=== PATIENT | female | born 1940 | race American Indian/Alaskan Native ===

== ENCOUNTER 2022-02-19 09:06 | Inpatient (IN) | payer MEDICARE ==
[2022-02-19] MEDS ORDERED: ONDANSETRON 4 MG/2 ML INJ IV ONE (10:05)
[2022-02-19] MEDS ORDERED: MORPHINE 2 MG/1 ML INJ IV ONE ×2 (10:05→11:55)
--- NOTE | 2022-02-19 10:31 | Emergency Department Report ---
ED Lower Extremity HPI - General Chief Complaint: Extremity Injury, Lower Stated Complaint: FALL/LEFT HIP PAIN Time Seen by Provider: 02/19/22 09:59 Source: patient, EMS Mode of arrival: Stretcher Limitations: Physical Limitation - History of Present Illness Initial Comments: This is a 81-year-old female nontoxic, well nourished in appearance, presents to the ED with c/o of left hip pain 1 day. Patient stated that last night she was getting up from her couch and had a mechanical trip and fell to the left hip area. Patient denies any other injuries or trauma. Denies any neck or back pain. Denies any other complaints or symptoms. Denies any LOC. Denies denies any head injuries or trauma. Patient denies any numbness, tingling, fever, chills, nausea, vomiting, chest pain, shortness of breath, headache, stiff neck. Patient denies any joint swelling or joint redness. Patient states has decreased range of motion and gait due to pain. Patient stated allergies to codeine but stated has taken Morphin in the past without any allergies. MD Complaint: hip injury -: days(s) (1) Injury: Hip: Left Place: home Severity: mild Severity scale (0 -10): 8 Improves With: immobilization Worsens With: weight bearing, movement, palpation Context: fall Associated Symptoms: unable to bear weight. denies: snap/pop sensation, swelling, numbness, tingling - Related Data Allergies Allergy/AdvReac Type Severity Reaction Status Date / Time codeine Allergy Unknown Verified 02/19/22 09:26 ED Review of Systems ROS: Stated complaint: FALL/LEFT HIP PAIN Other details as noted in HPI Comment: All other systems reviewed and negative Constitutional: denies: chills, fever Eyes: denies: eye pain, eye discharge, vision change ENT: denies: ear pain, throat pain Respiratory: denies: cough, shortness of breath, wheezing Cardiovascular: denies: chest pain, palpitations Endocrine: no symptoms reported Gastrointestinal: denies: abdominal pain, nausea, diarrhea Genitourinary: denies: urgency, dysuria, discharge Musculoskeletal: denies: back pain, joint swelling, arthralgia Skin: denies: rash, lesions Neurological: denies: headache, weakness, paresthesias Psychiatric: denies: anxiety, depression Hematological/Lymphatic: denies: easy bleeding, easy bruising ED Physical Exam - General General appearance: alert, in no apparent distress - Head Head exam: Present: atraumatic, normocephalic - Eye Eye exam: Present: normal appearance, PERRL, EOMI Pupils: Present: normal accommodation - ENT ENT exam: Present: normal exam - Neck Neck exam: Present: normal inspection, full ROM. Absent: tenderness, meningismus, lymphadenopathy - Respiratory Respiratory exam: Present: normal lung sounds bilaterally. Absent: respiratory distress, wheezes, rales, rhonchi, stridor, chest wall tenderness, accessory muscle use, decreased breath sounds, prolonged expiratory - Cardiovascular Cardiovascular Exam: Present: regular rate, normal rhythm, normal heart sounds. Absent: bradycardia, tachycardia, irregular rhythm, systolic murmur, diastolic murmur, rubs, gallop - GI/Abdominal GI/Abdominal exam: Present: soft, normal bowel sounds. Absent: distended, tenderness, guarding, rebound, rigid, diminished bowel sounds - Extremities Exam Extremities exam: Present: tenderness, normal capillary refill. Absent: pedal edema, joint swelling, calf tenderness - Expanded Lower Extremity Exam Left Hip exam: Present: full ROM (bilateral exam: with pain), tenderness (left hip only), external rotation (bilateral exam), internal rotation (bilateral exam), pelvic stability (bilateral exam). Absent: swelling (bilateral exam), abrasion (bilateral exam), laceration (bilateral exam), ecchymosis (bilateral exam), deformity (bilateral exam), crepidus (bilateral exam), dislocation (bilateral exam), erythema (bilateral exam), shortening (bilateral exam) Upper Leg exam: Present: normal inspection (bilateral exam), full ROM (bilateral exam). Absent: tenderness (bilateral exam), swelling (bilateral exam) Knee exam: Present: normal inspection (bilateral exam), full ROM (bilateral exam). Absent: tenderness (bilateral exam), swelling (bilateral exam) Lower Leg exam: Present: normal inspection (bilateral exam), full ROM (bilateral exam). Absent: tenderness, swelling Ankle exam: Present: normal inspection (bilateral exam), full ROM (bilateral exam). Absent: tenderness (bilateral exam), swelling (bilateral exam) Foot/Toe exam: Present: normal inspection (bilateral exam), full ROM (bilateral exam). Absent: tenderness (bilateral exam), swelling (bilateral exam) Neuro vascular tendon exam: Present: no vascular compromise (bilateral exam) Gait: Positive: unable to bear weight (left hip) - Back Exam Back exam: Present: normal inspection, full ROM. Absent: tenderness, CVA tenderness (R), CVA tenderness (L), muscle spasm, paraspinal tenderness, vertebral tenderness, rash noted - Neurological Exam Neurological exam: Present: alert, oriented X3 - Psychiatric Psychiatric exam: Present: normal affect, normal mood - Skin Skin exam: Present: warm, dry, intact, normal color. Absent: rash ED Course Vital Signs 02/19/22 02/19/22 02/19/22 09:22 10:12 10:15 Temperature 98.4 F Pulse Rate 73 Respiratory 18 Rate Blood Pressure 216/71 Blood Pressure 227/94 [Left] O2 Sat by Pulse 97 99 100 Oximetry 02/19/22 02/19/22 02/19/22 10:31 10:45 11:01 Temperature Pulse Rate Respiratory Rate Blood Pressure 209/78 209/78 227/77 Blood Pressure [Left] O2 Sat by Pulse 99 99 98 Oximetry 02/19/22 02/19/22 02/19/22 11:15 11:31 11:45 Temperature Pulse Rate Respiratory Rate Blood Pressure 224/71 172/61 172/61 Blood Pressure [Left] O2 Sat by Pulse 99 99 98 Oximetry 02/19/22 02/19/22 02/19/22 12:01 12:15 12:31 Temperature Pulse Rate Respiratory Rate Blood Pressure 166/55 191/70 210/84 Blood Pressure [Left] O2 Sat by Pulse 97 99 99 Oximetry 02/19/22 02/19/22 02/19/22 13:28 13:38 13:47 Temperature Pulse Rate Respiratory Rate Blood Pressure 269/169 187/76 189/82 Blood Pressure [Left] O2 Sat by Pulse Oximetry 02/19/22 02/19/22 14:08 14:27 Temperature Pulse Rate Respiratory Rate Blood Pressure 191/90 192/89 Blood Pressure [Left] O2 Sat by Pulse Oximetry - Reevaluation(s) Reevaluation #1: 02/19/22 10:40 Patient is speaking in full sentences with no signs of distress noted. - Consultations Consultation #1: 02/19/22 14:46 Patient has been consulted with Dr. Marc about patient history, physical exam, and labs/imaging results and agrees to ED plan of care with consult to orthopedic and admission. Consultation #2: 02/19/22 14:[address] Landis office and given patient information and was instructed that Dr. Landis will come and visit patient after office clinic. Consultation #3: 02/19/22 17:16 Patient has been consulted with Dr. Landis about patient history, physical exam, and labs/imaging results and agrees for admission for surgery. 02/19/22 17:22 Patient is a [facility] Patient. I will contact [facility] for approval for admissions. 02/19/22 17:36 Patient has been consulted with Dr. Dixon ([facility]) about patient history, physical exam, and labs/imaging studies and patient to be transferred to [facility] for further evaluation and appropriate treatment. 02/19/22 18:[address] Lerma ([facility] ED Lower Extremity MDM - Lab Data Result diagrams: 02/19/22 10:30 02/19/22 10:30 - Radiology Data [facility] [address] [place] [address] Cat Scan Report Signed Patient: DONNY HERNANDEZ MR#: [id number] [birth year] : 1940 Acct:[id number] Age/Sex: 81 / F ADM Date: 02/19/22 Loc: ED Attending Dr: Ordering Physician: KIM HANSEN NP Date of Service: 02/19/22 Procedure(s): CT lower extremity LT wo con Accession Number(s): [id number] cc: KIM HANSEN NP CT LEFT HIP WITHOUT CONTRAST INDICATION / CLINICAL INFORMATION: fall with pain. TECHNIQUE: All CT scans at this location are performed using CT dose reduction for ALARA by means of automated exposure control. COMPARISON: None available. FINDINGS: HIP JOINT: Mild DJD of the left hip BONES: There is an acute basicervical fracture with mild impaction and moderate angulation. No osseous lesion. SACROILIAC JOINT(S): No significant abnormality. MUSCLES / TENDONS: No significant abnormality. SOFT TISSUES: No significant abnormality. LOWER LUMBAR SPINE: Scattered degenerative disc disease. SOFT TISSUE WITHIN PELVIS: No acute findings. ADDITIONAL FINDINGS: None. IMPRESSION: 1. Acute basicervical fracture of the left proximal femur with mild impaction and moderate angulation. Signer Name: Rao Cabrales DO Signed: 02/19/2022 1:54 PM Workstation Name: [id number] Transcribed By: NS Dictated By: RAO CABRALES DO Electronically Authenticated By: RAO CABRALES DO Signed Date/Time: 02/19/22 1354 DD/ 1348 TD/TT: [facility] [address] [place] [address] Cat Scan Report Signed Patient: DONNY HERNANDEZ MR#: [id number] [birth year] : 1940 Acct:[id number] Age/Sex: 81 / F ADM Date: 02/19/22 Loc: ED Attending Dr: Ordering Physician: KIM HANSEN NP Date of Service: 02/19/22 Procedure(s): CT lumbar spine wo con Accession Number(s): [id number] cc: KIM HANSEN NP CT LUMBAR SPINE WITHOUT CONTRAST INDICATION: fall with pain. TECHNIQUE: Axial imaging performed through the lumbar spine without the use of contrast. Sagittal and coronal reconstructed images were also reviewed. All CT scans at this location are performed using CT dose reduction for ALARA by means of automated exposure control. COMPARISON: None FINDINGS: Alignment: There is moderate levocurvature of the lumbar spine measuring approximately 20 degrees with apex near the elbow 3 4 level. There is 3 mm anterolisthesis of L4 with respect to L5 on the sagittal images. Bones: There is no acute osseous abnormality. Moderate discogenic DJD is identified at L3-4 and L4-5. 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 Large bridging right lateral osteophyte is identified at L3-4. There is moderate diffuse facet arthropathy with hypertrophic changes. Moderate to severe central canal stenosis is suspected at L3-4 and L4- 5. Bilateral neural foraminal narrowing is also suspected at L3-4 and L4-5. 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 Soft tissues: No acute or significant incidental soft tissue abnormality. 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 L3-4 and L4-5 appear to be the most affected levels. No acute injury is detected. Signer Name: Grayson Daigle Jr, MD Signed: 02/19/2022 1:28 PM Workstation Name: [id number] Transcribed By: TTR Dictated By: GRAYSON DAIGLE JR, MD Electronically Authenticated By: GRAYSON DAIGLE JR, MD Signed Date/Time: 02/19/221327 DD/ 23 TD/TT: - Medical Decision Making 81-year-old female that presents with left hip fracture. Patient is stable and was examined by me. Patient is notified of the CT results with no questions noted by the patient. At this time patient is pain is under control. Vital signs are stable. Patient transferred to [facility] for further evaluation and treatment. At time of transport, the patient does not seem toxic or ill in appearance. No acute signs of distress noted. Patient agrees to transfer treatment plan of care. No further questions noted by the patient. Critical care attestation.: If time is entered above; I have spent that time in minutes in the direct care of this critically ill patient, excluding procedure time. ED Disposition Clinical Impression: Femur fracture, left Qualifiers: Encounter type: initial encounter Femur location: unspecified portion of femur Fracture type: closed Fracture morphology: unspecified fracture morphology Qualified Code(s): S72.92XA - Unspecified fracture of left femur, initial encounter for closed fracture Disposition: 04 [facility] Is pt being admited?: No Condition: Stable Time of Disposition: 18:33
[2022-02-19 10:50] LABS: Basophils # (Auto) 0.1 K/mm3 (0.0-0.1); Basophils % (Auto) 0.6 % (0.0-1.8); Eosinophils # (Auto) 0.2 K/mm3 (0.0-0.4); Eosinophils % (Auto) 1.9 % (0.0-4.3); Hematocrit 32.6 % (30.3-42.9); Hemoglobin 10.8 gm/dl (10.1-14.3); Lymphocytes # (Auto) 1.3 K/mm3 (1.2-5.4); Lymphocytes % (Auto) 9.8 % (13.4-35.0); Mean Corpuscular HGB Conc 33 % (30-34); Mean Corpuscular Volume 93 fl (79-97); Monocytes # (Auto) 0.6 K/mm3 (0.0-0.8); Monocytes % (Auto) 4.8 % (0.0-7.3); Platelet Count 187 K/mm3 (140-440); Red Blood Count 3.49 M/mm3 (3.65-5.03)
[2022-02-19 11:09] LABS: Calcium 9.3 mg/dL (8.4-10.2)
[2022-02-19] MEDS ORDERED: SODIUM CHLORIDE 0.9% 1000 ML 1,000 ML IV ONE (11:11)
--- NOTE | 2022-02-19 13:33 | Cat Scan Report ---
CT LUMBAR SPINE WITHOUT CONTRAST INDICATION: fall with pain. TECHNIQUE: Axial imaging performed through the lumbar spine without the use of contrast. Sagittal a nd coronal reconstructed images were also reviewed. All CT scans at this location are performed usin g CT dose reduction for ALARA by means of automated exposure control. COMPARISON: None FINDINGS: Alignment: There is moderate levocurvature of the lumbar spine measuring approximately 20 degrees wi th apex near the elbow 3 4 level. There is 3 mm anterolisthesis of L4 with respect to L5 on the sagit marco antonio images. Bones: There is no acute osseous abnormality. Moderate discogenic DJD is identified at L3-4 and L4- 5. 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 Large bridging right lateral osteophyte is identified at L3-4. There is moderate diffuse facet arthropathy with hypertrophic changes. Moderate to severe central canal stenosis is suspected at L3-4 and L4-5. Bilateral neural foraminal narrowing is also suspected at L3-4 and L4-5. 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 Soft tissues: No acute or significant incidental soft tissue abnormality. IMPRESSION: Moderate levo curvature of the lumbar spine with moderate to severe multilevel degenerat eduar changes as described. L3-4 and L4-5 appear to be the most affected levels. No acute injury is det ected. Signer Name: Grayson Daigle Jr, MD Signed: 02/19/2022 1:28 PM Workstation Name: [id number]
--- NOTE | 2022-02-19 13:58 | Cat Scan Report ---
CT LEFT HIP WITHOUT CONTRAST INDICATION / CLINICAL INFORMATION: fall with pain. TECHNIQUE: All CT scans at this location are performed using CT dose reduction for ALARA by means of automated exposure control. COMPARISON: None available. FINDINGS: HIP JOINT: Mild DJD of the left hip BONES: There is an acute basicervical fracture with mild impaction and moderate angulation. No osseou s lesion. SACROILIAC JOINT(S): No significant abnormality. MUSCLES / TENDONS: No significant abnormality. SOFT TISSUES: No significant abnormality. LOWER LUMBAR SPINE: Scattered degenerative disc disease. SOFT TISSUE WITHIN PELVIS: No acute findings. ADDITIONAL FINDINGS: None. IMPRESSION: 1. Acute basicervical fracture of the left proximal femur with mild impaction and moderate angulation . Signer Name: Rao Huang DO Signed: 02/19/2022 1:54 PM Workstation Name: [id number]
[2022-02-19] MEDS ORDERED: HYDROmorphone 1 MG/1 ML INJ IV ONE ×2 (14:05→19:34)
[2022-02-19] MEDS ORDERED: ACETAMINOPHEN 325 MG TAB PO PRN (22:39)
[2022-02-19] MEDS ORDERED: ALBUTEROL 2.5 MG/3 ML NEBU IH PRN (22:39)
[2022-02-19] MEDS ORDERED: ONDANSETRON 4 MG/2 ML INJ IV PRN (22:39)
--- NOTE | 2022-02-19 22:45 | History and Physical Report ---
History of Present Illness Date of examination: 02/19/22 Date of admission: 02/19/22 Chief complaint: Fall Left hip pain History of present illness: 11-year-old female with history of hypertension was brought to the emergency room because of left hip pain 1 day. Patient was getting up from her couch and had a mechanical trip and fell to the left hip area. Patient denies any other injuries or trauma. Denies any neck or back pain. Denies any other complaints or symptoms. Denies any LOC. Denies denies any head injuries or trauma. Patient denies any numbness, tingling, fever, chills, nausea, vomiting, chest pain, shortness of breath, headache, stiff neck. Patient denies any joint swelling or joint redness. Patient states has decreased range of motion and gait due to pain. In the emergency room CT scan of the lower extremity shows acute fracture of the left proximal femur with mild impaction and moderate angulation. Subsequently Case was discussed with Dr. Landis's were going to admit the patient orthopedic Dr. Starr will see the patient in consultation. Patient is a [place] patient Past History Past Medical History: hypertension Past Surgical History: No surgical history Social history: no significant social history Family history: hypertension Medications and Allergies Allergies Allergy/AdvReac Type Severity Reaction Status Date / Time codeine Allergy Unknown Verified 02/19/22 09:26 Active Meds: Active Medications Acetaminophen (Acetaminophen 325 Mg Tab) 650 mg PO Q4H PRN PRN Reason: Pain MILD(1-3)/Fever >100.5/BOWDEN Review of Systems All systems: negative Constitutional: other (Fall left hip pain) Exam - Constitutional Vitals: Temp Pulse Resp BP Pulse Ox 98.4 F 73 18 192/89 99 02/19/22 09:22 02/19/22 09:22 02/19/22 09:22 02/19/22 14:27 02/19/22 12:31 General appearance: Present: no acute distress, well-nourished - EENT Eyes: Present: PERRL ENT: hearing intact, clear oral mucosa - Neck Neck: Present: supple, normal ROM - Respiratory Respiratory effort: normal Respiratory: bilateral: CTA - Cardiovascular Heart Sounds: Present: S1 & S2. Absent: rub, click - Extremities Extremities: pulses symmetrical, No edema Extremity abnormal: other (Fall and left hip pain) Peripheral Pulses: within normal limits - Abdominal General gastrointestinal: Present: soft, non-tender, non-distended, normal bowel sounds Female genitourinary: Present: normal - Integumentary Integumentary: Present: clear, warm, dry - Musculoskeletal Musculoskeletal: gait normal, strength equal bilaterally - Psychiatric Psychiatric: appropriate mood/affect, intact judgment & insight - Neurologic Neurologic: CNII-XII intact, moves all extremities Results - Labs CBC & Chem 7: 02/19/22 10:30 02/19/22 10:30 Labs: Laboratory Last Values WBC 13.2 K/mm3 (4.5-11.0) H 02/19/22 10:30 RBC 3.49 M/mm3 (3.65-5.03) L 02/19/22 10:30 Hgb 10.8 gm/dl (10.1-14.3) 02/19/22 10:30 Hct 32.6 % (30.3-42.9) 02/19/22 10:30 MCV 93 fl (79-97) 02/19/22 10:30 MCH 31 pg (28-32) 02/19/22 10:30 MCHC 33 % (30-34) 02/19/22 10:30 RDW 14.0 % (13.2-15.2) 02/19/22 10:30 Plt Count 187 K/mm3 (140-440) 02/19/22 10:30 Lymph % (Auto) 9.8 % (13.4-35.0) L 02/19/22 10:30 [place] % (Auto) 4.8 % (0.0-7.3) 02/19/22 10:30 Eos % (Auto) 1.9 % (0.0-4.3) 02/19/22 10:30 Baso % (Auto) 0.6 % (0.0-1.8) 02/19/22 10:30 Lymph # (Auto) 1.3 K/mm3 (1.2-5.4) 02/19/22 10:30 [place] # (Auto) 0.6 K/mm3 (0.0-0.8) 02/19/22 10:30 Eos # (Auto) 0.2 K/mm3 (0.0-0.4) 02/19/22 10:30 Baso # (Auto) 0.1 K/mm3 (0.0-0.1) 02/19/22 10:30 Seg Neutrophils % 82.9 % (40.0-70.0) H 02/19/22 10:30 Seg Neutrophils # 10.9 K/mm3 (1.8-7.7) H 02/19/22 10:30 Sodium 128 mmol/L (137-145) L 02/19/22 10:30 Potassium 4.1 mmol/L (3.6-5.0) 02/19/22 10:30 Chloride 94.0 mmol/L (98-107) L 02/19/22 10:30 Carbon Dioxide 24 mmol/L (22-30) 02/19/22 10:30 Anion Gap 14 mmol/L 02/19/22 10:30 BUN 28 mg/dL (7-17) H 02/19/22 10:30 Creatinine 1.3 mg/dL (0.6-1.2) H 02/19/22 10:30 Estimated GFR 48 ml/min 02/19/22 10:30 BUN/Creatinine Ratio 22 % 02/19/22 10:30 Glucose 118 mg/dL (65-100) H 02/19/22 10:30 Calcium 9.3 mg/dL (8.4-10.2) 02/19/22 10:30 Assessment and Plan VTE prophylaxis?: Chemical Plan of care discussed with patient/family: Yes - Patient Problems (1) Femur fracture, left Current Visit: Yes Status: Acute Qualifiers: Encounter type: initial encounter Femur location: unspecified portion of femur Fracture type: closed Fracture morphology: unspecified fracture morphology Qualified Code(s): S72.92XA - Unspecified fracture of left femur, initial encounter for closed fracture Plan to address problem: Admit the patient to the medical floor telemetry. NPO. D5 half-normal saline at the rate of 100 cc per hour. Morphine 2 mg IV every 4 hours as needed. Tylenol 650 mg p.o. every 6 hours as needed. Reconsult orthopedic Dr. Landis to see the patient for possible surgery (2) Hypertension Current Visit: Yes Status: Acute Plan to address problem: Hydralazine 10 mg IV every 6 hours as needed. We continue the home medication (3) Fall Current Visit: Yes Status: Acute Plan to address problem: Patient is on fall precaution. Will consult physical therapy for evaluation (4) Hyponatremia Current Visit: Yes Status: Acute Plan to address problem: D5 half-normal saline at the rate of 100 cc/h. We will monitor the sodium closely. Recheck BMP in the morning (5) DVT prophylaxis Current Visit: Yes Status: Acute Plan to address problem: Heparin 5000 units subcu every 12 hours for DVT prophylaxis. Pepcid 20 mg IV every 12 hours for GI prophylaxis. Patient is a full code
[2022-02-20] MEDS: MORPHINE 4 MG/1 ML INJ IV PRN ×2 (03:46→10:12)
[2022-02-20] MEDS ORDERED: hydrALAZINE 10 MG TAB PO PRN (04:05)
[2022-02-20 05:54] LABS: Basophils # (Auto) 0.1 K/mm3 (0.0-0.1); Basophils % (Auto) 0.6 % (0.0-1.8); Eosinophils # (Auto) 0.4 K/mm3 (0.0-0.4); Eosinophils % (Auto) 2.7 % (0.0-4.3); Hematocrit 35.4 % (30.3-42.9); Hemoglobin 11.7 gm/dl (10.1-14.3); Lymphocytes # (Auto) 1.3 K/mm3 (1.2-5.4); Lymphocytes % (Auto) 8.8 % (13.4-35.0); Mean Corpuscular HGB Conc 33 % (30-34); Mean Corpuscular Volume 94 fl (79-97); Monocytes # (Auto) 0.7 K/mm3 (0.0-0.8); Monocytes % (Auto) 4.8 % (0.0-7.3); Platelet Count 195 K/mm3 (140-440); Red Blood Count 3.76 M/mm3 (3.65-5.03); Red Cell Distribution Width 14.4 % (13.2-15.2)
[2022-02-20 06:21] LABS: Albumin 3.6 g/dL (3.9-5); Calcium 9.5 mg/dL (8.4-10.2)
--- NOTE | 2022-02-20 07:54 | Progress Note ---
Assessment and Plan Assessment and plan: 11-year-old female with history of hypertension was brought to the emergency room because of left hip pain 1 day. Patient was getting up from her couch and had a mechanical trip and fell to the left hip area. Patient denies any other injuries or trauma. Denies any neck or back pain. Denies any other complaints or symptoms. Denies any LOC. Denies denies any head injuries or trauma. Patient denies any numbness, tingling, fever, chills, nausea, vomiting, chest pain, shortness of breath, headache, stiff neck. Patient denies any joint swelling or joint redness. Patient states has decreased range of motion and gait due to pain. In the emergency room CT scan of the lower extremity shows acute fracture of the left proximal femur with mild impaction and moderate angulation. Subsequently C ase was discussed with Dr. Landis's were going to admit the patient orthopedic Dr. Starr will see the patient in consultation. Patient is a [place] patient - Patient Problems (1) Femur fracture, left Current Visit: Yes Status: Acute Qualifiers: Encounter type: initial encounter Femur location: unspecified portion of femur Fracture type: closed Fracture morphology: unspecified fracture morphology Qualified Code(s): S72.92XA - Unspecified fracture of left femur, initial encounter for closed fracture Plan to address problem: Admit the patient to the medical floor telemetry. NPO. D5 half-normal saline at the rate of 100 cc per hour. Morphine 2 mg IV every 4 hours as needed. Tylenol 650 mg p.o. every 6 hours as needed. Reconsult orthopedic Dr. Landis to see the patient for possible surgery (2) Hypertension Current Visit: Yes Status: Acute Plan to address problem: Hydralazine 10 mg IV every 6 hours as needed. We continue the home medication (3) Fall Current Visit: Yes Status: Acute Plan to address problem: Patient is on fall precaution. Will consult physical therapy for evaluation (4) Hyponatremia Current Visit: Yes Status: Acute Plan to address problem: D5 half-normal saline at the rate of 100 cc/h. We will monitor the sodium closely. Recheck BMP in the morning (5) Leukocytosis Current Visit: Yes Status: Acute Plan to address problem: Rocephin 2 g IV daily. Recheck CBC in the morning (6) DVT prophylaxis Current Visit: Yes Status: Acute Plan to address problem: Heparin 5000 units subcu every 12 hours for DVT prophylaxis. Pepcid 20 mg IV ev cecy 12 hours for GI prophylaxis. Patient is a full code History Interval history: Patient is seen and examined. Lab reviewed. Patient complained of pain in the left hip. No chest pain or shortness of breath. Waiting for evaluation by orthopedic surgeon Dr. Landis Hospitalist Physical - Constitutional Vitals: Temp Pulse Resp BP Pulse Ox 98.0 F 89 20 162/126 94 02/20/22 02:01 02/20/22 02:01 02/20/22 02:01 02/20/22 07:15 02/20/22 07:15 General appearance: Present: no acute distress, well-nourished - EENT Eyes: Present: PERRL, EOM intact ENT: hearing intact, clear oral mucosa, dentition normal - Neck Neck: Present: supple, normal ROM - Respiratory Respiratory: bilateral: CTA - Cardiovascular Rhythm: regular Heart Sounds: Present: S1 & S2 - Extremities Extremities: no ischemia Extremity abnormal: other (Pain in the left hip) Peripheral Pulses: within normal limits - Abdominal General gastrointestinal: soft, non-tender, non-distended, normal bowel sounds - Integumentary Integumentary: Present: clear, warm, dry - Psychiatric Psychiatric: appropriate mood/affect, intact judgment & insight - Neurologic Neurologic: CNII-XII intact, moves all extremities Results - Labs CBC & Chem 7: 02/20/22 05:32 02/20/22 05:32 Labs: Laboratory Last Values WBC 14.3 K/mm3 (4.5-11.0) H 02/20/22 05:32 RBC 3.76 M/mm3 (3.65-5.03) 02/20/22 05:32 Hgb 11.7 gm/dl (10.1-14.3) 02/20/22 05:32 Hct 35.4 % (30.3-42.9) 02/20/22 05:32 MCV 94 fl (79-97) 02/20/22 05:32 MCH 31 pg (28-32) 02/20/22 05:32 MCHC 33 % (30-34) 02/20/22 05:32 RDW 14.4 % (13.2-15.2) 02/20/22 05:32 Plt Count 195 K/mm3 (140-440) 02/20/22 05:32 Lymph % (Auto) 8.8 % (13.4-35.0) L 02/20/22 05:32 [place] % (Auto) 4.8 % (0.0-7.3) 02/20/22 05:32 Eos % (Auto) 2.7 % (0.0-4.3) 02/20/22 05:32 Baso % (Auto) 0.6 % (0.0-1.8) 02/20/22 05:32 Lymph # (Auto) 1.3 K/mm3 (1.2-5.4) 02/20/22 05:32 [place] # (Auto) 0.7 K/mm3 (0.0-0.8) 02/20/22 05:32 Eos # (Auto) 0.4 K/mm3 (0.0-0.4) 02/20/22 05:32 Baso # (Auto) 0.1 K/mm3 (0.0-0.1) 02/20/22 05:32 Seg Neutrophils % 83.1 % (40.0-70.0) H 02/20/22 05:32 Seg Neutrophils # 11.9 K/mm3 (1.8-7.7) H 02/20/22 05:32 Sodium 135 mmol/L (137-145) L D 02/20/22 05:32 Potassium 4.3 mmol/L (3.6-5.0) 02/20/22 05:32 Chloride 98.4 mmol/L (98-107) 02/20/22 05:32 Carbon Dioxide 22 mmol/L (22-30) 02/20/22 05:32 Anion Gap 19 mmol/L 02/20/22 05:32 BUN 24 mg/dL (7-17) H 02/20/22 05:32 Creatinine 1.1 mg/dL (0.6-1.2) 02/20/22 05:32 Estimated GFR 58 ml/min 02/20/22 05:32 BUN/Creatinine Ratio 22 % 02/20/22 05:32 Glucose 96 mg/dL (65-100) 02/20/22 05:32 Calcium 9.5 mg/dL (8.4-10.2) 02/20/22 05:32 Total Bilirubin 0.90 mg/dL (0.1-1.2) 02/20/22 05:32 AST 27 units/L (5-40) 02/20/22 05:32 ALT 15 units/L (7-56) 02/20/22 05:32 Alkaline Phosphatase 85 units/L (35-129) 02/20/22 05:32 Total Protein 6.8 g/dL (6.3-8.2) 02/20/22 05:32 Albumin 3.6 g/dL (3.9-5) L 02/20/22 05:32 Albumin/Globulin Ratio 1.1 % 02/20/22 05:32 Active Medications - Current Medications Current Medications: Generic Name Dose Route Start Last Admin Trade Name Freq PRN Reason Stop Dose Admin Acetaminophen 650 mg 02/19/22 22:39 Acetaminophen 325 Mg Tab PO Q4H PRN Pain MILD(1-3)/Fever >100.5/BOWDEN Albuterol 2.5 mg 02/19/22 22:39 Albuterol 2.5 Mg/3 Ml Nebu IH Q3HRT PRN Shortness Of Breath Famotidine 20 mg 02/20/22 10:00 Famotidine 20 Mg/2 Ml Inj IV BID [facility] Heparin Sodium (Porcine) 5,000 unit 02/20/22 10:00 Heparin 5,000 Unit/1 Ml Vial SUB-Q Q12HR [facility] Hydralazine HCl 10 mg 02/20/22 04:17 Hydralazine 20 Mg/1 Ml Inj IV PRN PRN Hypertension Dextrose/Sodium Chloride 1,000 mls @ 100 mls/hr 02/19/22 23:00 D5/0.45ns IV DIRECT [facility] Morphine Sulfate 2 mg 02/19/22 22:39 Morphine 2 Mg/1 Ml Inj IV Q4H PRN Pain, Moderate (4-6) Morphine Sulfate 4 mg 02/19/22 22:39 02/20/22 03:46 Morphine 4 Mg/1 Ml Inj IV 4 mg Q4H PRN Administration Pain , Severe (7-10) Ondansetron HCl 4 mg 02/19/22 22:39 Ondansetron 4 Mg/2 Ml Inj IV Q8H PRN Nausea And Vomiting Sodium Chloride 10 ml 02/20/22 10:00 Sodium Chloride 0.9% 10 Ml Flush Syringe IV BID [facility] Sodium Chloride 10 ml 02/19/22 22:39 Sodium Chloride 0.9% 10 Ml Flush Syringe IV PRN PRN LINE FLUSH Nutrition/Malnutrition Assess - Malnutrition Assessment Minimum of two criteria: No physical signs of malnutrition - Attestation Statement I have reviewed and agreed w/ Malnutrition eval & tx plan: Yes
[2022-02-20] MEDS ORDERED: HEPARIN 5,000 UNIT/1 ML VIAL SUB-Q SCH ×2 (10:00→15:24)
[2022-02-20] MEDS: FAMOTIDINE 20 MG/2 ML INJ IV SCH (10:12)
[2022-02-20] MEDS: cefTRIAXone/NS 2 GM/100 ML 2 GM/100 ML BAG IV SCH (11:37)
--- NOTE | 2022-02-20 11:40 | Anesthesia Consultation ---
Anesthesia Consult and Med Hx Date of service: 02/20/22 - Airway Anesthetic Teeth Evaluation: Poor (2 bottom incisors. Denies any loose teeth.), Dentures (upper dentures) ROM Head & Neck: Adequate Mental/Hyoid Distance: Adequate Mallampati Class: Class II Intubation Access Assessment: Probably Good - Pulmonary Exam CTA: Yes - Cardiac Exam Cardiac Exam: RRR - Pre-Operative Health Status ASA Pre-Surgery Classification: ASA3, Emergency Proposed Anesthetic Plan: General - Pulmonary Hx Smoking: No Hx Asthma: No Hx Respiratory Symptoms: No SOB: No Home Oxygen Therapy: No Hx Sleep Apnea: No (High risk ) - Cardiovascular System Hx Hypertension: Yes (HLD) Hx Coronary Artery Disease: Yes Hx Heart Attack/AMI: Yes (CABG several years ago, x1 stent placed in 2016) Hx Cardia Arrhythmia: No Hx Peripheral Vascular Disease: No - Central Nervous System Hx Seizures: No CVA: No - Gastrointestinal Hx Gastroesophageal Reflux Disease: No - Endocrine Hx Renal Disease: No Hx Liver Disease: No Hx Non-Insulin Dependent Diabetes: No Hx Thyroid Disease: No - Hematic Hx Anemia: No Hx Sickle Cell Disease: No - Other Systems Hx Alcohol Use: No Hx Substance Use: No Hx Cancer: No Hx Obesity: Yes (BMI 31) - Additional Comments Anesthesia Medical History Comments: no hx of anesthetic complications.
--- NOTE | 2022-02-20 11:42 | XRay Report ---
LEFT HIP 3 VIEW(S) INDICATION / CLINICAL INFORMATION: left hip pain COMPARISON: CT yesterday FINDINGS: BONES / JOINT(S): Proximal left femur fracture is again noted at the inferior femoral neck with exten jama into the intertrochanteric region and greater trochanter. Osteopenia and advanced osteoarthrosis changes are noted. SOFT TISSUES: No significant abnormality. ADDITIONAL FINDINGS: None. IMPRESSION: 1. Proximal left femur fracture involving the basicervical neck extending into the intertrochanteric and greater trochanteric regions. Signer Name: Erick Omalley MD Signed: 02/20/2022 11:37 AM Workstation Name: Practice [email or web address] [id number]
[2022-02-20] MEDS ORDERED: BUPIVACAINE/PF (0.5%) 5 MG/1 ML 10 ML VIAL INFILTRATI ONE (12:50)
[2022-02-20] MEDS ORDERED: KETOROLAC 30 MG/1 ML INJ ONE (12:50)
[2022-02-20] MEDS ORDERED: SODIUM CHLORIDE 0.9% 0 ML ONE ×2 (12:51)
[2022-02-20] MEDS ORDERED: MORPHINE 10 MG/1 ML INJ ONE (12:51)
[2022-02-20] MEDS ORDERED: ROCURONIUM 50 MG/5 ML INJ IV ONE (13:50)
[2022-02-20] MEDS ORDERED: ONDANSETRON 4 MG/2 ML INJ ONE (13:50)
[2022-02-20] MEDS ORDERED: fentaNYL 100 MCG/2 ML INJ ONE (13:50)
[2022-02-20] MEDS ORDERED: propofoL 200 MG/20 ML VIAL IV ONE (13:50)
[2022-02-20] MEDS ORDERED: LIDOCAINE MPF (2%) 20 MG/1 ML VIAL 5 ML ONE (13:50)
[2022-02-20] MEDS ORDERED: MIDAZOLAM 2 MG/2 ML INJ ONE (13:51)
[2022-02-20] MEDS ORDERED: LACTATED RINGERS 1,000 ML ONE ×2 (13:52→15:29)
[2022-02-20] MEDS ORDERED: EPINEPHrine 1 MG/10 ML SYRINGE ONE (14:19)
[2022-02-20] MEDS ORDERED: ePHEDrine SULFATE 50 MG/1 ML INJ ONE (14:20)
[2022-02-20] MEDS ORDERED: ceFAZolin 1 GM VIAL ONE ×2 (14:42)
[2022-02-20] MEDS ORDERED: BUPIVACAINE/PF (0.5%) 5 MG/1 ML 30 ML VIAL INFILTRATI ONE ×2 (14:44→15:08)
[2022-02-20] MEDS ORDERED: SODIUM CHLORIDE 0.9% IRR 1,500 ML BOTTLE IR ONE (15:08)
[2022-02-20] MEDS ORDERED: GLYCOPYRROLATE 0.4 MG/2 ML INJ ONE (15:13)
[2022-02-20] MEDS ORDERED: NEOSTIGMINE 10MG/10 ML INJ MDV ONE (15:13)
[2022-02-20] MEDS ORDERED: ACETAMINOPHEN 325 MG TAB PO PRN (15:20)
--- NOTE | 2022-02-20 15:28 | Consultation ---
History of Present Illness - HPI Consult date: 02/20/22 Consult reason: joint pain, fracture History of present illness: 81 y/o female with c/o left hip pain after at home prior to admission, states she fell that night but after about 12 hrs pain became unbearable and came to ED at [facility] where xrays taken revealed a left intertrochanteric fx... no c/o's noted... Past History Past Medical History: hypertension Past Surgical History: No surgical history Social history: no significant social history Family history: hypertension Medications and Allergies Allergies Allergy/AdvReac Type Severity Reaction Status Date / Time codeine Allergy Unknown Verified 02/19/22 09:26 Active Meds: Active Medications Acetaminophen (Acetaminophen 325 Mg Tab) 650 mg PO Q4H PRN PRN Reason: Pain MILD(1-3)/Fever >100.5/BOWDEN Albuterol (Albuterol 2.5 Mg/3 Ml Nebu) 2.5 mg IH Q3HRT PRN PRN Reason: Shortness Of Breath Famotidine (Famotidine 20 Mg/2 Ml Inj) 20 mg IV BID ZOHREH Last Admin: 02/20/22 10:12 Dose: 20 mg Heparin Sodium (Porcine) (Heparin 5,000 Unit/1 Ml Vial) 5,000 unit SUB-Q Q12HR ZOHREH Last Admin: 02/20/22 10:54 Dose: Not Given Hydralazine HCl (Hydralazine 20 Mg/1 Ml Inj) 10 mg IV PRN PRN PRN Reason: Hypertension Dextrose/Sodium Chloride (D5/0.45ns) 1,000 mls @ 100 mls/hr IV DIRECT ZOHREH Ceftriaxone Sodium (Rocephin/Ns 2 Gm/100 Ml) 2 gm in 100 mls @ 200 mls/hr IV Q24H ZOHREH; Protocol Last Infusion: 02/20/22 12:07 Dose: Infused Morphine Sulfate (Morphine 2 Mg/1 Ml Inj) 2 mg IV Q4H PRN PRN Reason: Pain, Moderate (4-6) Morphine Sulfate (Morphine 4 Mg/1 Ml Inj) 4 mg IV Q4H PRN PRN Reason: Pain , Severe (7-10) Last Admin: 02/20/22 10:12 Dose: 4 mg Ondansetron HCl (Ondansetron 4 Mg/2 Ml Inj) 4 mg IV Q8H PRN PRN Reason: Nausea And Vomiting Sodium Chloride (Sodium Chloride 0.9% 10 Ml Flush Syringe) 10 ml IV BID ZOHREH Sodium Chloride (Sodium Chloride 0.9% 10 Ml Flush Syringe) 10 ml IV PRN PRN PRN Reason: LINE FLUSH Physical Examination - Physical exam Narrative exam: left LE - + shortened and ext rotated, mild swelling proximally, tender prox thigh, dec AROM, distal n/v intact Assessment and Plan Left intertrochanteric hip fracture recommend - IM nail fixation, followed by PT, etc...
--- NOTE | 2022-02-20 15:32 | Procedure Note ---
Date of procedure: 02/20/22 Pre-op diagnosis: left intertrochanter fracture hip Post-op diagnosis: same Procedure: Closed reduction insertion of intramedullary nail [left] femur Procedure The patient was brought to the OR and placed on the OR table, following intubation she was transferred onto the [place] table supine the legs were placed in longitudinal traction The C-arm fluoroscope was brought in and the hip was reduced in both the AP and lateral planes. Next the [left] hip was prepped and draped in the usual sterile manner a stab wound was made posterior and superior to the greater trochanter this is carried down sharply through skin and fascia using a Reid elevator the soft tissues were split down to the tip of the greater trochanter A large awl was used to enter the proximal medullary canal this was followed by placement of the guidewire again under C-arm visualization the tip of the guidewire was seen in the distal femur next the measurements were obtained a 11 x 380 intramedullary nail was selected this was followed by reaming up to a 12-1/2 mm diameter following this the intramedullary nail was inserted and a antegrade fashion down the proximal canal into the distal femur next the targeting device for the Gamma nail was placed and the stab wound was made along the lateral border of the thigh again under C-arm visualization a guidewire was inserted into the femoral neck again measuring this delay a 90 mm Gamma nail was chosen the forearm or near cortex was drilled followed by insertion of the gamma nail next the locking screw proximally was engaged again under C-arm direction AP and lateral views were obtained showing good reduction at the fracture and placement of the hardware following this a wound was copiously irrigated and was closed in a standard routine fashion and the patient tolerated the procedure there were no complications and he was sent to postanesthesia recovery in stable condition Anesthesia: GETA Surgeon: GREGORY BARNARD Estimated blood loss: 50-100ml Pathology: list Condition: stable Disposition: PACU
--- NOTE | 2022-02-20 15:56 | XRay Report ---
LEFT FEMUR 2 VIEWS INDICATION: IM NAILING LEFT FENUR. COMPARISON: None. IMPRESSION: 1.2 minutes of fluoroscopy time was provided by radiology during internal fixation of a proximal left femur fracture. 2 fluoroscopic images are presented demonstrating anatomic alignment a t the fracture site. Signer Name: Grayson Daigle Jr, MD Signed: 02/20/2022 3:51 PM Workstation Name: [id number]
--- NOTE | 2022-02-20 17:32 | Post Anesthesia Evaluation ---
- Post Anesthesia Evaluation Patient Participated: Yes Airway Patent: Yes Stable Respiratory Function: Yes Nausea/Vomiting: No Temp > 96.8F: Yes Pain Manageable: Yes Adequeate Hydration: Yes Anesthesia Complications: No Block Receding Appropriately: Not Applicable Patient on Ventilator: No
[2022-02-20] MEDS: D5W/0.45% NACL 1,000 ML IV SCH (18:01)
[2022-02-21] MEDS: FAMOTIDINE 20 MG/2 ML INJ IV SCH ×2 (00:08→09:52)
[2022-02-21] MEDS: MORPHINE 2 MG/1 ML INJ IV PRN ×2 (00:21→04:57)
[2022-02-21] MEDS: hydrALAZINE 20 MG/1 ML INJ IV PRN (04:56)
[2022-02-21 05:49] LABS: Hematocrit 32.5 % (30.3-42.9); Hemoglobin 10.4 gm/dl (10.1-14.3)
[2022-02-21] MEDS: FAMOTIDINE 10 MG TAB PO SCH ×2 (09:52→23:09)
[2022-02-21] MEDS: ENOXAPARIN 40 MG/0.4 ML INJ SUB-Q SCH (09:52)
--- NOTE | 2022-02-21 10:06 | Progress Note ---
Assessment and Plan Assessment and plan: 81-year-old female with history of hypertension was brought to the emergency room because of left hip pain 1 day. Patient was getting up from her couch and had a mechanical trip and fell to the left hip area. Patient denies any other injuries or trauma. No loss of consciousness, no headache dizziness, chest pain, or palpitations. In the emergency room CT scan of the lower extremity shows acute fracture of the left proximal femur with mild impaction and moderate angulation. Subsequently evaluated by orthopedic surgeon Dr. Landis.and patient was admitted subsequently underwent closed reduction and IM nailing of left femur. Postop care per orthopedics surgeon --Femur fracture, left Admit the patient to the medical floor telemetry. NPO. D5 half-normal saline at the rate of 100 cc per hour. Morphine 2 mg IV every 4 hours as needed. Tylenol 650 mg p.o. every 6 hours as needed. Reconsult orthopedic Dr. Landis to see the patient for possible surgery --S/P Closed reduction and IM nail placement; Continue postop care per orthopedic surgeon recommendations Pain medications, physical therapy and Occupational Therapy and rehab --hypertension; uncontrolled probably due to pain Pain management, continue antihypertensives and as needed medications Hydralazine 10 mg IV every 6 hours as needed. We continue the home medication --History of fall Patient is on fall precaution. Physical therapy occupational therapy And rehabilitation --History of hyponatremia; improving gradually D5 half-normal saline at the rate of 100 cc/h. Monitor electrolytes --Leukocytosis Rocephin 2 g IV daily. Recheck CBC in the morning --Full CODE STATUS; -- DVT prophylaxis Heparin 5000 units subcu every 12 hours for DVT prophylaxis. Pepcid 20 mg IV every 12 hours for GI prophylaxis. Continue postop care Follow-up PT OT evaluation recommendations Discharge planning per case management Subacute/SNF placement/home with home health when medically stable Follow-up with Ortho for recommendations Plan of care reviewed with patient and his nurse History Interval history: I have seen and examined the patient at the bedside Patient with left hip fracture, evaluated by orthopedic surgeon Patient underwent closed reduction and IM nail placement yesterday 02/21/2020 Patient complains of some pain Vital signs noted Hospitalist Physical - Constitutional Vitals: Temp Pulse Resp BP Pulse Ox 97.3 F L 94 H 16 197/82 99 02/21/22 04:43 02/21/22 04:56 02/21/22 04:43 02/21/22 04:56 02/21/22 04:43 General appearance: Present: no acute distress, well-nourished, obese - EENT Eyes: Present: PERRL, EOM intact - Neck Neck: Present: supple, normal ROM - Respiratory Respiratory effort: normal - Cardiovascular Rhythm: regular Heart Sounds: Present: S1 & S2 - Extremities Extremities: no ischemia, No edema - Abdominal General gastrointestinal: soft, non-tender, non-distended, normal bowel sounds - Integumentary Integumentary: Present: clear, warm - Psychiatric Psychiatric: appropriate mood/affect, cooperative - Neurologic Neurologic: moves all extremities Results - Labs CBC & Chem 7: 02/21/22 05:01 02/20/22 05:32 Labs: Laboratory Last Values WBC 14.3 K/mm3 (4.5-11.0) H 02/20/22 05:32 RBC 3.76 M/mm3 (3.65-5.03) 02/20/22 05:32 Hgb 10.4 gm/dl (10.1-14.3) 02/21/22 05:01 Hct 32.5 % (30.3-42.9) 02/21/22 05:01 MCV 94 fl (79-97) 02/20/22 05:32 MCH 31 pg (28-32) 02/20/22 05:32 MCHC 33 % (30-34) 02/20/22 05:32 RDW 14.4 % (13.2-15.2) 02/20/22 05:32 Plt Count 195 K/mm3 (140-440) 02/20/22 05:32 Lymph % (Auto) 8.8 % (13.4-35.0) L 02/20/22 05:32 [place] % (Auto) 4.8 % (0.0-7.3) 02/20/22 05:32 Eos % (Auto) 2.7 % (0.0-4.3) 02/20/22 05:32 Baso % (Auto) 0.6 % (0.0-1.8) 02/20/22 05:32 Lymph # (Auto) 1.3 K/mm3 (1.2-5.4) 02/20/22 05:32 [place] # (Auto) 0.7 K/mm3 (0.0-0.8) 02/20/22 05:32 Eos # (Auto) 0.4 K/mm3 (0.0-0.4) 02/20/22 05:32 Baso # (Auto) 0.1 K/mm3 (0.0-0.1) 02/20/22 05:32 Seg Neutrophils % 83.1 % (40.0-70.0) H 02/20/22 05:32 Seg Neutrophils # 11.9 K/mm3 (1.8-7.7) H 02/20/22 05:32 Sodium 135 mmol/L (137-145) L D 02/20/22 05:32 Potassium 4.3 mmol/L (3.6-5.0) 02/20/22 05:32 Chloride 98.4 mmol/L (98-107) 02/20/22 05:32 Carbon Dioxide 22 mmol/L (22-30) 02/20/22 05:32 Anion Gap 19 mmol/L 02/20/22 05:32 BUN 24 mg/dL (7-17) H 02/20/22 05:32 Creatinine 1.1 mg/dL (0.6-1.2) 02/20/22 05:32 Estimated GFR 58 ml/min 02/20/22 05:32 BUN/Creatinine Ratio 22 % 02/20/22 05:32 Glucose 96 mg/dL (65-100) 02/20/22 05:32 Calcium 9.5 mg/dL (8.4-10.2) 02/20/22 05:32 Total Bilirubin 0.90 mg/dL (0.1-1.2) 02/20/22 05:32 AST 27 units/L (5-40) 02/20/22 05:32 ALT 15 units/L (7-56) 02/20/22 05:32 Alkaline Phosphatase 85 units/L (35-129) 02/20/22 05:32 Total Protein 6.8 g/dL (6.3-8.2) 02/20/22 05:32 Albumin 3.6 g/dL (3.9-5) L 02/20/22 05:32 Albumin/Globulin Ratio 1.1 % 02/20/22 05:32 [place]/IV: Voiding Method External Female Catheter Active Medications - Current Medications Current Medications: Generic Name Dose Route Start Last Admin Trade Name Freq PRN Reason Stop Dose Admin Acetaminophen 650 mg 02/19/22 22:39 Acetaminophen 325 Mg Tab PO Q4H PRN Pain MILD(1-3)/Fever >100.5/BOWDEN Albuterol 2.5 mg 02/19/22 22:39 Albuterol 2.5 Mg/3 Ml Nebu IH Q3HRT PRN Shortness Of Breath Enoxaparin Sodium 40 mg 02/21/22 10:00 02/21/22 09:52 Enoxaparin 40 Mg/0.4 Ml Inj SUB-Q 40 mg QDAY ZOHREH Administration Famotidine 20 mg 02/20/22 10:00 02/21/22 09:52 Famotidine 20 Mg/2 Ml Inj IV 02/21/22 12:00 Not Given BID ZOHREH Famotidine 10 mg 02/21/22 10:00 02/21/22 09:52 Famotidine 10 Mg Tab PO 10 mg BID ZOHREH Administration Hydralazine HCl 10 mg 02/20/22 04:17 02/21/22 04:56 Hydralazine 20 Mg/1 Ml Inj IV 10 mg PRN PRN Administration Hypertension Dextrose/Sodium Chloride 1,000 mls @ 100 mls/hr 02/19/22 23:00 02/20/22 18:01 D5/0.45ns IV 100 mls/hr DIRECT ZOHREH Administration Ceftriaxone Sodium 2 gm in 100 mls @ 200 mls/hr 02/20/22 08:00 02/20/22 12:07 Rocephin/Ns 2 Gm/100 Ml IV 02/24/22 08:59 Infused Q24H ZOH[facility] Infusion Protocol Ibuprofen 800 mg 02/20/22 15:20 Ibuprofen 800 Mg Tab PO Q8H PRN Pain, Moderate (4-6) Ketorolac Tromethamine 15 mg 02/20/22 15:20 Ketorolac 30 Mg/1 Ml Inj IV 02/25/22 15:19 Q6H PRN Pain, Moderate (4-6) Morphine Sulfate 2 mg 02/20/22 15:20 Morphine 2 Mg/1 Ml Inj IV Q4H PRN Pain, Moderate (4-6) Morphine Sulfate 4 mg 02/20/22 15:20 Morphine 4 Mg/1 Ml Inj IV Q4H PRN Pain , Severe (7-10) Ondansetron HCl 4 mg 02/19/22 22:39 Ondansetron 4 Mg/2 Ml Inj IV Q8H PRN Nausea And Vomiting Sodium Chloride 10 ml 02/20/22 10:00 02/21/22 09:52 Sodium Chloride 0.9% 10 Ml Flush Syringe IV 10 ml BID ZOHREH Administration Sodium Chloride 10 ml 02/19/22 22:39 Sodium Chloride 0.9% 10 Ml Flush Syringe IV PRN PRN LINE FLUSH Sodium Chloride 10 ml 02/20/22 16:00 Sodium Chloride 0.9% 10 Ml Flush Syringe IV 03/02/22 23:59 PRN NR
[2022-02-21] MEDS: MORPHINE 4 MG/1 ML INJ IV PRN (11:08)
[2022-02-21] MEDS: cefTRIAXone/NS 2 GM/100 ML 2 GM/100 ML BAG IV SCH (11:13)
[2022-02-21] MEDS: D5W/0.45% NACL 1,000 ML IV SCH (11:23)
--- NOTE | 2022-02-21 16:20 | Progress Note ---
Assessment and Plan s/p IM nail left hip/femur doing well, continue PT and observation Subjective Date of service: 02/21/22 Interval history: c/o incisional pain left hip otherwise ok, PT started.... Objective Vital signs: Vital Signs - 12hr 02/21/22 02/21/22 02/21/22 04:43 04:56 12:35 Temperature 97.3 F L Pulse Rate 94 H 94 H Respiratory 16 Rate Blood Pressure 197/82 197/82 O2 Sat by Pulse 99 99 Oximetry 02/21/22 12:38 Temperature Pulse Rate Respiratory Rate Blood Pressure O2 Sat by Pulse 97 Oximetry Incision: clean and dry Weight bearing status: as tolerated - Labs CBC & BMP: 02/21/22 05:01 02/20/22 05:32
--- NOTE | 2022-02-21 18:33 | Event Note ---
Date: 02/21/22 I called [phone], at [place] community relations representative called and said she would connect me with Dr. Bishop, however she informed me that the doctor is busy on the other line and she would call me back again tomorrow morning to discuss about the patient. We will try to contact [place] physician tomorrow and update the patient's condition and the treatment and discharge planning I informed the patient's nurse.
[2022-02-21] MEDS: KETOROLAC 30 MG/1 ML INJ IV PRN (18:59)
[2022-02-22] MEDS: MORPHINE 4 MG/1 ML INJ IV PRN ×3 (01:50→19:39)
[2022-02-22] MEDS: D5W/0.45% NACL 1,000 ML IV SCH (05:07)
[2022-02-22] MEDS: cefTRIAXone/NS 2 GM/100 ML 2 GM/100 ML BAG IV SCH (09:21)
[2022-02-22] MEDS: ENOXAPARIN 40 MG/0.4 ML INJ SUB-Q SCH (09:21)
[2022-02-22] MEDS: FAMOTIDINE 10 MG TAB PO SCH ×2 (09:21→21:44)
--- NOTE | 2022-02-22 17:24 | Event Note ---
Date: 02/22/22 I called [place] at [phone] and discussed with [place] physician Dr. Zaragoza and discussed in detail Patient's condition, diagnosis, treatment of IM nailing and reduction of left hip fracture, and PT evaluation and recommendations of Subacute rehab placement, I also informed that patient is stable to be discharged to subacute rehab. She reported that [place] case management will get in touch with her patient's showcase maker and make arrangements for transfer to subacute rehab. I informed the nurse and the CM about the [place] physicians discharge plans.
--- NOTE | 2022-02-22 17:25 | Progress Note ---
Assessment and Plan Assessment and plan: 81-year-old female with history of hypertension was brought to the emergency room because of left hip pain 1 day. Patient was getting up from her couch and had a mechanical trip and fell to the left hip area. Patient denies any other injuries or trauma. No loss of consciousness, no headache dizziness, chest pain, or palpitations. In the emergency room CT scan of the lower extremity shows acute fracture of the left proximal femur with mild impaction and moderate angulation. Subsequently evaluated by orthopedic surgeon Dr. Landis.and patient was admitted subsequently underwent closed reduction and IM nailing of left femur. Postop care per orthopedics surgeon --Femur fracture, left Admit the patient to the medical floor telemetry. NPO. D5 half-normal saline at the rate of 100 cc per hour. Morphine 2 mg IV every 4 hours as needed. Tylenol 650 mg p.o. every 6 hours as needed. Reconsult orthopedic Dr. Landis to see the patient for possible surgery --S/P Closed reduction and IM nail placement; Continue postop care per orthopedic surgeon recommendations Pain medications, physical therapy and Occupational Therapy and rehab --hypertension; uncontrolled probably due to pain Pain management, continue antihypertensives and as needed medications Hydralazine 10 mg IV every 6 hours as needed. We continue the home medication --History of fall Patient is on fall precaution. Physical therapy occupational therapy And rehabilitation --History of hyponatremia; improving gradually D5 half-normal saline at the rate of 100 cc/h. Monitor electrolytes --Leukocytosis Rocephin 2 g IV daily. Recheck CBC in the morning --Full CODE STATUS; -- DVT prophylaxis Heparin 5000 units subcu every 12 hours for DVT prophylaxis. Pepcid 20 mg IV every 12 hours for GI prophylaxis. Continue postop care Follow-up PT OT evaluation recommendations Discharge planning per case management Subacute/SNF placement/home with home health when medically stable Follow-up with Ortho for recommendations Patient is clinically stable for discharge Awaiting subacute rehab placement per PT Will try to contact [facility] physicians this afternoon In process planning discharge to subacute rehab Plan of care reviewed with patient and his nurse 02/21/2022; I called [phone], at [facility] market survey representative called and said she would co nnect me with Dr. Bishop, however she informed me that the doctor is busy on the other line and she would call me back again tomorrow morning to discuss about the patient.We will try to contact [facility] physician tomorrow 02/22/2022;. We will try to contact [facility] physicians this afternoon to discuss the discharge planning History Interval history: I have seen and examined the patient at the bedside this afternoon Patient's chart and medications reviewed Patient feels better tolerating physical therapy Complains of some mild pain at the surgical site Vital signs reviewed Hospitalist Physical - Constitutional Vitals: Temp Pulse Resp BP Pulse Ox 98.0 F 96 H 22 150/73 99 02/22/22 12:29 02/22/22 12:29 02/22/22 12:29 02/22/22 12:29 02/22/22 12:29 General appearance: Present: no acute distress, well-nourished, obese - EENT Eyes: Present: PERRL, EOM intact - Neck Neck: Present: supple, normal ROM - Respiratory Respiratory effort: normal Respiratory: bilateral: diminished, negative: rales, rhonchi, wheezing - Cardiovascular Rhythm: regular Heart Sounds: Present: S1 & S2 - Extremities Extremities: no ischemia, No edema - Abdominal General gastrointestinal: soft, non-tender, non-distended, normal bowel sounds - Integumentary Integumentary: Present: clear, warm - Psychiatric Psychiatric: appropriate mood/affect, cooperative - Neurologic Neurologic: CNII-XII intact, moves all extremities Results - Labs CBC & Chem 7: 02/21/22 05:01 02/22/22 05:17 Labs: Laboratory Last Values WBC 14.3 K/mm3 (4.5-11.0) H 02/20/22 05:32 RBC 3.76 M/mm3 (3.65-5.03) 02/20/22 05:32 Hgb 10.4 gm/dl (10.1-14.3) 02/21/22 05:01 Hct 32.5 % (30.3-42.9) 02/21/22 05:01 MCV 94 fl (79-97) 02/20/22 05:32 MCH 31 pg (28-32) 02/20/22 05:32 MCHC 33 % (30-34) 02/20/22 05:32 RDW 14.4 % (13.2-15.2) 02/20/22 05:32 Plt Count 195 K/mm3 (140-440) 02/20/22 05:32 Lymph % (Auto) 8.8 % (13.4-35.0) L 02/20/22 05:32 [place] % (Auto) 4.8 % (0.0-7.3) 02/20/22 05:32 Eos % (Auto) 2.7 % (0.0-4.3) 02/20/22 05:32 Baso % (Auto) 0.6 % (0.0-1.8) 02/20/22 05:32 Lymph # (Auto) 1.3 K/mm3 (1.2-5.4) 02/20/22 05:32 [place] # (Auto) 0.7 K/mm3 (0.0-0.8) 02/20/22 05:32 Eos # (Auto) 0.4 K/mm3 (0.0-0.4) 02/20/22 05:32 Baso # (Auto) 0.1 K/mm3 (0.0-0.1) 02/20/22 05:32 Seg Neutrophils % 83.1 % (40.0-70.0) H 02/20/22 05:32 Seg Neutrophils # 11.9 K/mm3 (1.8-7.7) H 02/20/22 05:32 Sodium 132 mmol/L (137-145) L 02/22/22 05:17 Potassium 4.3 mmol/L (3.6-5.0) 02/20/22 05:32 Chloride 98.4 mmol/L (98-107) 02/20/22 05:32 Carbon Dioxide 22 mmol/L (22-30) 02/20/22 05:32 Anion Gap 19 mmol/L 02/20/22 05:32 BUN 24 mg/dL (7-17) H 02/20/22 05:32 Creatinine 1.1 mg/dL (0.6-1.2) 02/20/22 05:32 Estimated GFR 58 ml/min 02/20/22 05:32 BUN/Creatinine Ratio 22 % 02/20/22 05:32 Glucose 96 mg/dL (65-100) 02/20/22 05:32 Calcium 9.5 mg/dL (8.4-10.2) 02/20/22 05:32 Total Bilirubin 0.90 mg/dL (0.1-1.2) 02/20/22 05:32 AST 27 units/L (5-40) 02/20/22 05:32 ALT 15 units/L (7-56) 02/20/22 05:32 Alkaline Phosphatase 85 units/L (35-129) 02/20/22 05:32 Total Protein 6.8 g/dL (6.3-8.2) 02/20/22 05:32 Albumin 3.6 g/dL (3.9-5) L 02/20/22 05:32 Albumin/Globulin Ratio 1.1 % 02/20/22 05:32 Chou/IV: Voiding Method External Female Catheter Active Medications - Current Medications Current Medications: Generic Name Dose Route Start Last Admin Trade Name Freq PRN Reason Stop Dose Admin Acetaminophen 650 mg 02/19/22 22:39 Acetaminophen 325 Mg Tab PO Q4H PRN Pain MILD(1-3)/Fever >100.5/BOWDEN Albuterol 2.5 mg 02/19/22 22:39 Albuterol 2.5 Mg/3 Ml Nebu IH Q3HRT PRN Shortness Of Breath Enoxaparin Sodium 40 mg 02/21/22 10:00 02/22/22 09:21 Enoxaparin 40 Mg/0.4 Ml Inj SUB-Q 40 mg QDAY ZOHREH Administration Famotidine 10 mg 02/21/22 10:00 02/22/22 09:21 Famotidine 10 Mg Tab PO 10 mg BID ZOHREH Administration Hydralazine HCl 10 mg 02/20/22 04:17 02/21/22 04:56 Hydralazine 20 Mg/1 Ml Inj IV 10 mg PRN PRN Administration Hypertension Dextrose/Sodium Chloride 1,000 mls @ 100 mls/hr 02/19/22 23:00 02/22/22 05:07 D5/0.45ns IV 100 mls/hr DIRECT ZOHREH Administration Ceftriaxone Sodium 2 gm in 100 mls @ 200 mls/hr 02/20/22 08:00 02/22/22 09:21 Rocephin/Ns 2 Gm/100 Ml IV 02/24/22 08:59 100 mls/hr Q24H ZOHREH Administration Protocol Ibuprofen 800 mg 02/20/22 15:20 Ibuprofen 800 Mg Tab PO Q8H PRN Pain, Moderate (4-6) Ketorolac Tromethamine 15 mg 02/20/22 15:20 02/21/22 18:59 Ketorolac 30 Mg/1 Ml Inj IV 02/25/22 15:19 15 mg Q6H PRN Administration Pain, Moderate (4-6) Morphine Sulfate 2 mg 02/20/22 15:20 Morphine 2 Mg/1 Ml Inj IV Q4H PRN Pain, Moderate (4-6) Morphine Sulfate 4 mg 02/20/22 15:20 02/22/22 10:20 Morphine 4 Mg/1 Ml Inj IV 4 mg Q4H PRN Administration Pain , Severe (7-10) Ondansetron HCl 4 mg 02/19/22 22:39 Ondansetron 4 Mg/2 Ml Inj IV Q8H PRN Nausea And Vomiting Sodium Chloride 10 ml 02/20/22 10:00 02/22/22 09:22 Sodium Chloride 0.9% 10 Ml Flush Syringe IV 10 ml BID ZOHREH Administration Sodium Chloride 10 ml 02/19/22 22:39 Sodium Chloride 0.9% 10 Ml Flush Syringe IV PRN PRN LINE FLUSH Sodium Chloride 10 ml 02/20/22 16:00 Sodium Chloride 0.9% 10 Ml Flush Syringe IV 03/02/22 23:59 PRN NR
[2022-02-23] MEDS: ENOXAPARIN 40 MG/0.4 ML INJ SUB-Q SCH (11:06)
[2022-02-23] MEDS: FAMOTIDINE 10 MG TAB PO SCH ×2 (11:09→23:07)
[2022-02-23] MEDS: cefTRIAXone/NS 2 GM/100 ML 2 GM/100 ML BAG IV SCH (12:19)
--- NOTE | 2022-02-23 14:31 | Progress Note ---
Assessment and Plan s/p IM nail left hip/femur doing well, continue PT and observation Subjective Date of service: 02/23/22 Interval history: appears more confused today... Objective Vital signs: Vital Signs - 12hr 02/23/22 05:19 Temperature 98.5 F Pulse Rate 103 H Respiratory 24 Rate Blood Pressure 158/76 O2 Sat by Pulse 91 Oximetry Incision: clean and dry Weight bearing status: as tolerated - Labs CBC & BMP: 02/21/22 05:01 02/22/22 05:17
--- NOTE | 2022-02-23 19:03 | Progress Note ---
Assessment and Plan Assessment and plan: 81-year-old female with history of hypertension was brought to the emergency room because of left hip pain 1 day. Patient was getting up from her couch and had a mechanical trip and fell to the left hip area. Patient denies any other injuries or trauma. No loss of consciousness, no headache dizziness, chest pain, or palpitations. In the emergency room CT scan of the lower extremity shows acute fracture of the left proximal femur with mild impaction and moderate angulation. Subsequently evaluated by orthopedic surgeon Dr. Landis.and patient was admitted subsequently underwent closed reduction and IM nailing of left femur. Postop care per orthopedics surgeon --Femur fracture, left Admit the patient to the medical floor telemetry. NPO. D5 half-normal saline at the rate of 100 cc per hour. Morphine 2 mg IV every 4 hours as needed. Tylenol 650 mg p.o. every 6 hours as needed. Reconsult orthopedic Dr. Landis to see the patient for possible surgery --S/P Closed reduction and IM nail placement; Continue postop care per orthopedic surgeon recommendations Pain medications, physical therapy and Occupational Therapy and rehab --hypertension; uncontrolled probably due to pain Pain management, continue antihypertensives and as needed medications Hydralazine 10 mg IV every 6 hours as needed. We continue the home medication --History of fall Patient is on fall precaution. Physical therapy occupational therapy And rehabilitation --History of hyponatremia; improving gradually D5 half-normal saline at the rate of 100 cc/h. Monitor electrolytes --Leukocytosis Rocephin 2 g IV daily. Recheck CBC in the morning --Full CODE STATUS; -- DVT prophylaxis Heparin 5000 units subcu every 12 hours for DVT prophylaxis. Pepcid 20 mg IV every 12 hours for GI prophylaxis. Continue postop care Follow-up PT OT evaluation recommendations Discharge planning per case management Subacute/SNF placement/home with home health when medically stable Follow-up with Ortho for recommendations Patient is clinically stable for discharge Awaiting subacute rehab placement per PT Will try to contact [facility] physicians this afternoon In process planning discharge to subacute rehab Plan of care reviewed with patient and his nurse 02/21/2022; I called [phone], at [facility] market survey representative called and said she would c onnect me with Dr. Bishop, however she informed me that the doctor is busy on the other line and she would call me back again tomorrow morning to discuss about the patient.We will try to contact [facility] physician tomorrow 02/22/2022;. We will try to contact [facility] physicians this afternoon to discuss the discharge planning 02/23/22; [facility] case folder and our case folder processing subacute rehab placement Pending authorization Hospitalist Physical - Constitutional Vitals: Temp Pulse Resp BP Pulse Ox 98.5 F 103 H 18 158/76 97 02/23/22 05:19 02/23/22 05:19 02/23/22 12:00 02/23/22 05:19 02/23/22 12:00 General appearance: Present: no acute distress, well-nourished, obese Results - Labs CBC & Chem 7: 02/21/22 05:01 02/22/22 05:17 Labs: Laboratory Last Values WBC 14.3 K/mm3 (4.5-11.0) H 02/20/22 05:32 RBC 3.76 M/mm3 (3.65-5.03) 02/20/22 05:32 Hgb 10.4 gm/dl (10.1-14.3) 02/21/22 05:01 Hct 32.5 % (30.3-42.9) 02/21/22 05:01 MCV 94 fl (79-97) 02/20/22 05:32 MCH 31 pg (28-32) 02/20/22 05:32 MCHC 33 % (30-34) 02/20/22 05:32 RDW 14.4 % (13.2-15.2) 02/20/22 05:32 Plt Count 195 K/mm3 (140-440) 02/20/22 05:32 Lymph % (Auto) 8.8 % (13.4-35.0) L 02/20/22 05:32 [place] % (Auto) 4.8 % (0.0-7.3) 02/20/22 05:32 Eos % (Auto) 2.7 % (0.0-4.3) 02/20/22 05:32 Baso % (Auto) 0.6 % (0.0-1.8) 02/20/22 05:32 Lymph # (Auto) 1.3 K/mm3 (1.2-5.4) 02/20/22 05:32 [place] # (Auto) 0.7 K/mm3 (0.0-0.8) 02/20/22 05:32 Eos # (Auto) 0.4 K/mm3 (0.0-0.4) 02/20/22 05:32 Baso # (Auto) 0.1 K/mm3 (0.0-0.1) 02/20/22 05:32 Seg Neutrophils % 83.1 % (40.0-70.0) H 02/20/22 05:32 Seg Neutrophils # 11.9 K/mm3 (1.8-7.7) H 02/20/22 05:32 Sodium 132 mmol/L (137-145) L 02/22/22 05:17 Potassium 4.3 mmol/L (3.6-5.0) 02/20/22 05:32 Chloride 98.4 mmol/L (98-107) 02/20/22 05:32 Carbon Dioxide 22 mmol/L (22-30) 02/20/22 05:32 Anion Gap 19 mmol/L 02/20/22 05:32 BUN 24 mg/dL (7-17) H 02/20/22 05:32 Creatinine 1.1 mg/dL (0.6-1.2) 02/20/22 05:32 Estimated GFR 58 ml/min 02/20/22 05:32 BUN/Creatinine Ratio 22 % 02/20/22 05:32 Glucose 96 mg/dL (65-100) 02/20/22 05:32 Calcium 9.5 mg/dL (8.4-10.2) 02/20/22 05:32 Total Bilirubin 0.90 mg/dL (0.1-1.2) 02/20/22 05:32 AST 27 units/L (5-40) 02/20/22 05:32 ALT 15 units/L (7-56) 02/20/22 05:32 Alkaline Phosphatase 85 units/L (35-129) 02/20/22 05:32 Total Protein 6.8 g/dL (6.3-8.2) 02/20/22 05:32 Albumin 3.6 g/dL (3.9-5) L 02/20/22 05:32 Albumin/Globulin Ratio 1.1 % 02/20/22 05:32 Chou/IV: Voiding Method External Female Catheter Active Medications - Current Medications Current Medications: Generic Name Dose Route Start Last Admin Trade Name Freq PRN Reason Stop Dose Admin Acetaminophen 650 mg 02/19/22 22:39 Acetaminophen 325 Mg Tab PO Q4H PRN Pain MILD(1-3)/Fever >100.5/BOWDEN Albuterol 2.5 mg 02/19/22 22:39 Albuterol 2.5 Mg/3 Ml Nebu IH Q3HRT PRN Shortness Of Breath Enoxaparin Sodium 40 mg 02/21/22 10:00 02/23/22 11:06 Enoxaparin 40 Mg/0.4 Ml Inj SUB-Q 40 mg QDAY ZOHREH Administration Famotidine 10 mg 02/21/22 10:00 02/23/22 11:09 Famotidine 10 Mg Tab PO 10 mg BID ZOHREH Administration Hydralazine HCl 10 mg 02/20/22 04:17 02/21/22 04:56 Hydralazine 20 Mg/1 Ml Inj IV 10 mg PRN PRN Administration Hypertension Dextrose/Sodium Chloride 1,000 mls @ 100 mls/hr 02/19/22 23:00 02/22/22 05:07 D5/0.45ns IV 100 mls/hr DIRECT ZOHREH Administration Ceftriaxone Sodium 2 gm in 100 mls @ 200 mls/hr 02/20/22 08:00 02/23/22 12:19 Rocephin/Ns 2 Gm/100 Ml IV 02/24/22 08:59 100 mls/hr Q24H ZOHREH Administration Protocol Ibuprofen 800 mg 02/20/22 15:20 Ibuprofen 800 Mg Tab PO Q8H PRN Pain, Moderate (4-6) Ketorolac Tromethamine 15 mg 02/20/22 15:20 02/21/22 18:59 Ketorolac 30 Mg/1 Ml Inj IV 02/25/22 15:19 15 mg Q6H PRN Administration Pain, Moderate (4-6) Morphine Sulfate 2 mg 02/20/22 15:20 Morphine 2 Mg/1 Ml Inj IV Q4H PRN Pain, Moderate (4-6) Morphine Sulfate 4 mg 02/20/22 15:20 02/22/22 19:39 Morphine 4 Mg/1 Ml Inj IV 4 mg Q4H PRN Administration Pain , Severe (7-10) Ondansetron HCl 4 mg 02/19/22 22:39 Ondansetron 4 Mg/2 Ml Inj IV Q8H PRN Nausea And Vomiting Sodium Chloride 10 ml 02/20/22 10:00 02/23/22 11:08 Sodium Chloride 0.9% 10 Ml Flush Syringe IV Not Given BID ZOHREH Sodium Chloride 10 ml 02/19/22 22:39 Sodium Chloride 0.9% 10 Ml Flush Syringe IV PRN PRN LINE FLUSH Sodium Chloride 10 ml 02/20/22 16:00 Sodium Chloride 0.9% 10 Ml Flush Syringe IV 03/02/22 23:59 PRN NR
--- NOTE | 2022-02-23 19:05 | Progress Note ---
Assessment and Plan Assessment and plan: I called [facility] at [phone] and discussed with [facility] physician Dr. Zaragoza and discussed in detail Patient's condition, diagnosis, treatment of IM nailing and reduction of left hip fracture, and PT evaluation and recommendations of Subacute rehab placement, I also informed that patient is stable to be discharged to subacute rehab. She reported that [facility] case management will get in touch with her patient's case resolution specialist and make arrangements for transfer to subacute rehab. I informed the nurse and the CM about the [facility] physicians discharge plans. 81-year-old female with history of hypertension was brought to the emergency room because of left hip pain 1 day. Patient was getting up from her couch and had a mechanical trip and fell to the left hip area. Patient denies any other injuries or trauma. No loss of consciousness, no headache dizziness, c hest pain, or palpitations. In the emergency room CT scan of the lower extremity shows acute fracture of the left proximal femur with mild impaction and moderate angulation. Subsequently evaluated by orthopedic surgeon Dr. Landis.and patient was admitted subsequently underwent closed reduction and IM nailing of left femur. Postop care per orthopedics surgeon --Femur fracture, left Admit the patient to the medical floor telemetry. NPO. D5 half-normal saline at the rate of 100 cc per hour. Morphine 2 mg IV every 4 hours as needed. Tylenol 650 mg p.o. every 6 hours as needed. Reconsult orthopedic Dr. Landis to see the patient for possible surgery --S/P Closed reduction and IM nail placement; Continue postop care per orthopedic surgeon recommendations Pain medications, physical therapy and Occupational Therapy and rehab --hypertension; uncontrolled probably due to pain Pain management, continue antihypertensives and as needed medications Hydralazine 10 mg IV every 6 hours as needed. We continue the home medication --History of fall Patient is on fall precaution. Physical therapy occupational therapy And rehabilitation --History of hyponatremia; improving gradually D5 half-normal saline at the rate of 100 cc/h. Monitor electrolytes --Leukocytosis Rocephin 2 g IV daily. Recheck CBC in the morning --Full CODE STATUS; -- DVT prophylaxis Heparin 5000 units subcu every 12 hours for DVT prophylaxis. Pepcid 20 mg IV every 12 hours for GI prophylaxis. Continue postop care Follow-up PT OT evaluation recommendations Discharge planning per case management Subacute/SNF placement/home with home health when medically stable Follow-up with Ortho for recommendations Patient is clinically stable for discharge Awaiting subacute rehab placement per PT Will try to contact [facility] physicians this afternoon In process planning discharge to subacute rehab Plan of care reviewed with patient and his nurse 02/21/2022; I called [phone], at [facility] event marketing representative called and said she would connec t me with Dr. Bishop, however she informed me that the doctor is busy on the other line and she would call me back again tomorrow morning to discuss about the patient.We will try to contact [facility] physician tomorrow 02/22/2022;. We will try to contact [facility] physicians this afternoon to discuss the discharge planning 02/23/22; [facility] case resolution specialist and our case resolution specialist processing subacute rehab p sukhdev Pending authorization History Interval history: Seen and examined the patient at bedside Patient's chart and medications reviewed Complains of some pain Tolerating physical therapy Vital signs noted Pending subacute rehab placement [facility] Case management assisting with discharge planning Hospitalist Physical - Constitutional Vitals: Temp Pulse Resp BP Pulse Ox 98.5 F 103 H 18 158/76 97 02/23/22 05:19 02/23/22 05:19 02/23/22 12:00 02/23/22 05:19 02/23/22 12:00 General appearance: Present: no acute distress, well-nourished, obese - EENT Eyes: Present: PERRL, EOM intact - Respiratory Respiratory effort: normal, labored Respiratory: bilateral: diminished, negative: rales, rhonchi, wheezing - Cardiovascular Rhythm: regular Heart Sounds: Present: S1 & S2 - Extremities Extremities: no ischemia, No edema - Abdominal General gastrointestinal: soft, non-tender, non-distended, normal bowel sounds - Integumentary Integumentary: Present: clear, warm - Psychiatric Psychiatric: appropriate mood/affect, cooperative - Neurologic Neurologic: moves all extremities Results - Labs CBC & Chem 7: 02/21/22 05:01 02/22/22 05:17 Labs: Laboratory Last Values WBC 14.3 K/mm3 (4.5-11.0) H 02/20/22 05:32 RBC 3.76 M/mm3 (3.65-5.03) 02/20/22 05:32 Hgb 10.4 gm/dl (10.1-14.3) 02/21/22 05:01 Hct 32.5 % (30.3-42.9) 02/21/22 05:01 MCV 94 fl (79-97) 02/20/22 05:32 MCH 31 pg (28-32) 02/20/22 05:32 MCHC 33 % (30-34) 02/20/22 05:32 RDW 14.4 % (13.2-15.2) 02/20/22 05:32 Plt Count 195 K/mm3 (140-440) 02/20/22 05:32 Lymph % (Auto) 8.8 % (13.4-35.0) L 02/20/22 05:32 [place] % (Auto) 4.8 % (0.0-7.3) 02/20/22 05:32 Eos % (Auto) 2.7 % (0.0-4.3) 02/20/22 05:32 Baso % (Auto) 0.6 % (0.0-1.8) 02/20/22 05:32 Lymph # (Auto) 1.3 K/mm3 (1.2-5.4) 02/20/22 05:32 [place] # (Auto) 0.7 K/mm3 (0.0-0.8) 02/20/22 05:32 Eos # (Auto) 0.4 K/mm3 (0.0-0.4) 02/20/22 05:32 Baso # (Auto) 0.1 K/mm3 (0.0-0.1) 02/20/22 05:32 Seg Neutrophils % 83.1 % (40.0-70.0) H 02/20/22 05:32 Seg Neutrophils # 11.9 K/mm3 (1.8-7.7) H 02/20/22 05:32 Sodium 132 mmol/L (137-145) L 02/22/22 05:17 Potassium 4.3 mmol/L (3.6-5.0) 02/20/22 05:32 Chloride 98.4 mmol/L (98-107) 02/20/22 05:32 Carbon Dioxide 22 mmol/L (22-30) 02/20/22 05:32 Anion Gap 19 mmol/L 02/20/22 05:32 BUN 24 mg/dL (7-17) H 02/20/22 05:32 Creatinine 1.1 mg/dL (0.6-1.2) 02/20/22 05:32 Estimated GFR 58 ml/min 02/20/22 05:32 BUN/Creatinine Ratio 22 % 02/20/22 05:32 Glucose 96 mg/dL (65-100) 02/20/22 05:32 Calcium 9.5 mg/dL (8.4-10.2) 02/20/22 05:32 Total Bilirubin 0.90 mg/dL (0.1-1.2) 02/20/22 05:32 AST 27 units/L (5-40) 02/20/22 05:32 ALT 15 units/L (7-56) 02/20/22 05:32 Alkaline Phosphatase 85 units/L (35-129) 02/20/22 05:32 Total Protein 6.8 g/dL (6.3-8.2) 02/20/22 05:32 Albumin 3.6 g/dL (3.9-5) L 02/20/22 05:32 Albumin/Globulin Ratio 1.1 % 02/20/22 05:32 Chou/IV: Voiding Method External Female Catheter Active Medications - Current Medications Current Medications: Generic Name Dose Route Start Last Admin Trade Name Freq PRN Reason Stop Dose Admin Acetaminophen 650 mg 02/19/22 22:39 Acetaminophen 325 Mg Tab PO Q4H PRN Pain MILD(1-3)/Fever >100.5/BOWDEN Albuterol 2.5 mg 02/19/22 22:39 Albuterol 2.5 Mg/3 Ml Nebu IH Q3HRT PRN Shortness Of Breath Enoxaparin Sodium 40 mg 02/21/22 10:00 02/23/22 11:06 Enoxaparin 40 Mg/0.4 Ml Inj SUB-Q 40 mg QDAY ZOHREH Administration Famotidine 10 mg 02/21/22 10:00 02/23/22 11:09 Famotidine 10 Mg Tab PO 10 mg BID ZOHREH Administration Hydralazine HCl 10 mg 02/20/22 04:17 02/21/22 04:56 Hydralazine 20 Mg/1 Ml Inj IV 10 mg PRN PRN Administration Hypertension Dextrose/Sodium Chloride 1,000 mls @ 100 mls/hr 02/19/22 23:00 02/22/22 05:07 D5/0.45ns IV 100 mls/hr DIRECT ZOHREH Administration Ceftriaxone Sodium 2 gm in 100 mls @ 200 mls/hr 02/20/22 08:00 02/23/22 12:19 Rocephin/Ns 2 Gm/100 Ml IV 02/24/22 08:59 100 mls/hr Q24H ZOHREH Administration Protocol Ibuprofen 800 mg 02/20/22 15:20 Ibuprofen 800 Mg Tab PO Q8H PRN Pain, Moderate (4-6) Ketorolac Tromethamine 15 mg 02/20/22 15:20 02/21/22 18:59 Ketorolac 30 Mg/1 Ml Inj IV 02/25/22 15:19 15 mg Q6H PRN Administration Pain, Moderate (4-6) Morphine Sulfate 2 mg 02/20/22 15:20 Morphine 2 Mg/1 Ml Inj IV Q4H PRN Pain, Moderate (4-6) Morphine Sulfate 4 mg 02/20/22 15:20 02/22/22 19:39 Morphine 4 Mg/1 Ml Inj IV 4 mg Q4H PRN Administration Pain , Severe (7-10) Ondansetron HCl 4 mg 02/19/22 22:39 Ondansetron 4 Mg/2 Ml Inj IV Q8H PRN Nausea And Vomiting Sodium Chloride 10 ml 02/20/22 10:00 02/23/22 11:08 Sodium Chloride 0.9% 10 Ml Flush Syringe IV Not Given BID ZOHREH Sodium Chloride 10 ml 02/19/22 22:39 Sodium Chloride 0.9% 10 Ml Flush Syringe IV PRN PRN LINE FLUSH Sodium Chloride 10 ml 02/20/22 16:00 Sodium Chloride 0.9% 10 Ml Flush Syringe IV 03/02/22 23:59 PRN NR
[2022-02-24] MEDS: FAMOTIDINE 10 MG TAB PO SCH ×2 (10:16→21:58)
[2022-02-24] MEDS: cefTRIAXone/NS 2 GM/100 ML 2 GM/100 ML BAG IV SCH (10:16)
[2022-02-24] MEDS: ENOXAPARIN 40 MG/0.4 ML INJ SUB-Q SCH (10:16)
[2022-02-24] MEDS ORDERED: CETIRIZINE 10 MG TAB PO ONE (13:00)
--- NOTE | 2022-02-24 20:46 | Progress Note ---
Assessment and Plan Assessment and plan: I called [facility] at [phone] on 02/22/2022 and spoke with the [facility] physician Dr. Zaragoza and discussed in detail Patient's condition, diagnosis, treatment of IM nailing and reduction of left hip fracture, and PT evaluation and recommendations of Subacute rehab placement, I also informed that patient is stable to be discharged to subacute rehab. She reported that [facility] case management will get in touch with our hospital onsite case manager and make arrangements for transfer the patient to subacute rehab. And she also notified that I need not call back them to update the DC planning. I informed the nurse and the CM about the [facility] physicians discharge plans. 81-year-old female with history of hypertension was brought to the emergency room because of left hip pain 1 day. Patient was getting up from her couch and had a mechanical trip and fell to the left hip area. Patient denies any other injuries or trauma. No loss of consciousness, no headache dizziness, chest pain, or palpitations. In the emergency room CT scan of the lower extremity shows acute fracture of the left proximal femur with mild impaction and moderate angulation. Subsequently evaluated by orthopedic surgeon Dr. Landis.and patient was admitted subsequently underwent closed reduction and IM nailing of left femur. Postop care per orthopedics surgeon --Femur fracture, left Admit the patient to the medical floor telemetry. NPO. D5 half-normal saline at the rate of 100 cc per hour. Morphine 2 mg IV every 4 hours as needed. Tylenol 650 mg p.o. every 6 hours as needed. Reconsult orthopedic Dr. Landis to see the patient for possible surgery --S/P Closed reduction and IM nail placement; Continue postop care per orthopedic surgeon recommendations Pain medications, physical therapy and Occupational Therapy and rehab --hypertension; uncontrolled probably due to pain Pain management, continue antihypertensives and as needed medications Hydralazine 10 mg IV every 6 hours as needed. We continue the home medication --History of fall Patient is on fall precaution. Physical therapy occupational therapy And rehabilitation --History of hyponatremia; improving gradually D5 half-normal saline at the rate of 100 cc/h. Monitor electrolytes --Leukocytosis Rocephin 2 g IV daily. Recheck CBC in the morning --Full CODE STATUS; -- DVT prophylaxis Heparin 5000 units subcu every 12 hours for DVT prophylaxis. Pepcid 20 mg IV every 12 hours for GI prophylaxis. Continue postop care Follow-up PT OT evaluation recommendations Discharge planning per case management Subacute/SNF placement/home with home health when medically stable Follow-up with Ortho for recommendations Patient is clinically stable for discharge Awaiting subacute rehab placement per PT Will try to contact [facility] physicians this afternoon In process planning discharge to subacute rehab Plan of care reviewed with patient and his nurse 02/21/2022; I called [phone], at [facility] [employer]ios[employer] sales representative called and said she would c onnect me with Dr. Bishop, however she informed me that the doctor is busy on the other line and she would call me back again tomorrow morning to discuss about the patient.We will try to contact [facility] physician tomorrow 02/22/2022;. We will try to contact [facility] physicians this afternoon to discuss the discharge planning 02/23/22; [facility] onsite case manager and our onsite case manager processing subacute rehab placement Pending authorization 02/24/2022; awaiting subacute placement disposition per [facility] Hospitalist Physical - Constitutional Vitals: Temp Pulse Resp BP Pulse Ox 98.8 F 82 20 139/81 100 02/24/22 16:26 02/24/22 16:26 02/24/22 16:26 02/24/22 16:26 02/24/22 16:26 General appearance: Present: no acute distress, well-nourished, obese Results - Labs CBC & Chem 7: 02/21/22 05:01 02/22/22 05:17 Labs: Laboratory Last Values WBC 14.3 K/mm3 (4.5-11.0) H 02/20/22 05:32 RBC 3.76 M/mm3 (3.65-5.03) 02/20/22 05:32 Hgb 10.4 gm/dl (10.1-14.3) 02/21/22 05:01 Hct 32.5 % (30.3-42.9) 02/21/22 05:01 MCV 94 fl (79-97) 02/20/22 05:32 MCH 31 pg (28-32) 02/20/22 05:32 MCHC 33 % (30-34) 02/20/22 05:32 RDW 14.4 % (13.2-15.2) 02/20/22 05:32 Plt Count 195 K/mm3 (140-440) 02/20/22 05:32 Lymph % (Auto) 8.8 % (13.4-35.0) L 02/20/22 05:32 [place] % (Auto) 4.8 % (0.0-7.3) 02/20/22 05:32 Eos % (Auto) 2.7 % (0.0-4.3) 02/20/22 05:32 Baso % (Auto) 0.6 % (0.0-1.8) 02/20/22 05:32 Lymph # (Auto) 1.3 K/mm3 (1.2-5.4) 02/20/22 05:32 [place] # (Auto) 0.7 K/mm3 (0.0-0.8) 02/20/22 05:32 Eos # (Auto) 0.4 K/mm3 (0.0-0.4) 02/20/22 05:32 Baso # (Auto) 0.1 K/mm3 (0.0-0.1) 02/20/22 05:32 Seg Neutrophils % 83.1 % (40.0-70.0) H 02/20/22 05:32 Seg Neutrophils # 11.9 K/mm3 (1.8-7.7) H 02/20/22 05:32 Sodium 132 mmol/L (137-145) L 02/22/22 05:17 Potassium 4.3 mmol/L (3.6-5.0) 02/20/22 05:32 Chloride 98.4 mmol/L (98-107) 02/20/22 05:32 Carbon Dioxide 22 mmol/L (22-30) 02/20/22 05:32 Anion Gap 19 mmol/L 02/20/22 05:32 BUN 24 mg/dL (7-17) H 02/20/22 05:32 Creatinine 1.1 mg/dL (0.6-1.2) 02/20/22 05:32 Estimated GFR 58 ml/min 02/20/22 05:32 BUN/Creatinine Ratio 22 % 02/20/22 05:32 Glucose 96 mg/dL (65-100) 02/20/22 05:32 Calcium 9.5 mg/dL (8.4-10.2) 02/20/22 05:32 Total Bilirubin 0.90 mg/dL (0.1-1.2) 02/20/22 05:32 AST 27 units/L (5-40) 02/20/22 05:32 ALT 15 units/L (7-56) 02/20/22 05:32 Alkaline Phosphatase 85 units/L (35-129) 02/20/22 05:32 Total Protein 6.8 g/dL (6.3-8.2) 02/20/22 05:32 Albumin 3.6 g/dL (3.9-5) L 02/20/22 05:32 Albumin/Globulin Ratio 1.1 % 02/20/22 05:32 Chou/IV: Voiding Method External Female Catheter Active Medications - Current Medications Current Medications: Generic Name Dose Route Start Last Admin Trade Name Freq PRN Reason Stop Dose Admin Acetaminophen 650 mg 02/19/22 22:39 02/24/22 12:04 Acetaminophen 325 Mg Tab PO 650 mg Q4H PRN Administration Pain MILD(1-3)/Fever >100.5/BOWDEN Albuterol 2.5 mg 02/19/22 22:39 Albuterol 2.5 Mg/3 Ml Nebu IH Q3HRT PRN Shortness Of Breath Cetirizine HCl 10 mg 02/25/22 10:00 Cetirizine 10 Mg Tab PO QDAY ZOHREH Enoxaparin Sodium 40 mg 02/21/22 10:00 02/24/22 10:16 Enoxaparin 40 Mg/0.4 Ml Inj SUB-Q 40 mg QDAY ZOHREH Administration Famotidine 10 mg 02/21/22 10:00 02/24/22 10:16 Famotidine 10 Mg Tab PO 10 mg BID ZOHREH Administration Hydralazine HCl 10 mg 02/20/22 04:17 02/21/22 04:56 Hydralazine 20 Mg/1 Ml Inj IV 10 mg PRN PRN Administration Hypertension Dextrose/Sodium Chloride 1,000 mls @ 100 mls/hr 02/19/22 23:00 02/22/22 05:07 D5/0.45ns IV 100 mls/hr DIRECT ZOHREH Administration Ibuprofen 800 mg 02/20/22 15:20 Ibuprofen 800 Mg Tab PO Q8H PRN Pain, Moderate (4-6) Ketorolac Tromethamine 15 mg 02/20/22 15:20 02/21/22 18:59 Ketorolac 30 Mg/1 Ml Inj IV 02/25/22 15:19 15 mg Q6H PRN Administration Pain, Moderate (4-6) Morphine Sulfate 2 mg 02/20/22 15:20 Morphine 2 Mg/1 Ml Inj IV Q4H PRN Pain, Moderate (4-6) Morphine Sulfate 4 mg 02/20/22 15:20 02/22/22 19:39 Morphine 4 Mg/1 Ml Inj IV 4 mg Q4H PRN Administration Pain , Severe (7-10) Ondansetron HCl 4 mg 02/19/22 22:39 Ondansetron 4 Mg/2 Ml Inj IV Q8H PRN Nausea And Vomiting Sodium Chloride 10 ml 02/20/22 10:00 02/24/22 10:18 Sodium Chloride 0.9% 10 Ml Flush Syringe IV 10 ml BID ZOHREH Administration Sodium Chloride 10 ml 02/19/22 22:39 Sodium Chloride 0.9% 10 Ml Flush Syringe IV PRN PRN LINE FLUSH Sodium Chloride 10 ml 02/20/22 16:00 Sodium Chloride 0.9% 10 Ml Flush Syringe IV 03/02/22 23:59 PRN NR
[2022-02-24] MEDS: KETOROLAC 30 MG/1 ML INJ IV PRN (22:06)
[2022-02-25] MEDS: FAMOTIDINE 10 MG TAB PO SCH ×2 (09:20→21:18)
[2022-02-25] MEDS: ENOXAPARIN 40 MG/0.4 ML INJ SUB-Q SCH (09:20)
[2022-02-25] MEDS: CETIRIZINE 10 MG TAB PO SCH (09:20)
--- NOTE | 2022-02-25 10:26 | Progress Note ---
Assessment and Plan Assessment and plan: On 02/22/2022 I called [facility] at [phone] and discussed with [facility] physician Dr. Zaragoza and discussed in detail Patient's condition, diagnosis, treatment of IM nailing and reduction of left hip fracture, and PT evaluation and recommendations of Subacute rehab placement, I also informed that patient is stable to be discharged to subacute rehab. She reported that [facility] case management will get in touch with her patient's clinical case manager and make arrangements for transfer to subacute rehab. I informed the nurse and the CM about the [facility] physicians discharge plans. 81-year-old female with history of hypertension was brought to the emergency room because of left hip pain 1 day. Patient was getting up from her couch and had a mechanical trip and fell to the left hip area. Patient denies any other injuries or trauma. No loss of consciousness, no headache dizziness, chest pain, or palpitations. In the emergency room CT scan of the lower extremity shows acute fracture of the left proximal femur with mild impaction and moderate angulation. Subsequently evaluated by orthopedic surgeon Dr. Landis.and patient was admitted subsequently underwent closed reduction and IM nailing of left femur. Postop care per orthopedics surgeon --Femur fracture, left Admit the patient to the medical floor telemetry. NPO. D5 half-normal saline at the rate of 100 cc per hour. Morphine 2 mg IV every 4 hours as needed. Tylenol 650 mg p.o. every 6 hours as needed. Reconsult orthopedic Dr. Landis to see the patient for possible surgery --S/P Closed reduction and IM nail placement; Continue postop care per orthopedic surgeon recommendations Pain medications, physical therapy and Occupational Therapy and rehab --hypertension; uncontrolled probably due to pain Pain management, continue antihypertensives and as needed medications Hydralazine 10 mg IV every 6 hours as needed. We continue the home medication --History of fall Patient is on fall precaution. Physical therapy occupational therapy And rehabilitation --History of hyponatremia; improving gradually D5 half-normal saline at the rate of 100 cc/h. Monitor electrolytes --Leukocytosis Rocephin 2 g IV daily. Recheck CBC in the morning --Full CODE STATUS; -- DVT prophylaxis Heparin 5000 units subcu every 12 hours for DVT prophylaxis. Pepcid 20 mg IV every 12 hours for GI prophylaxis. Continue postop care Follow-up PT OT evaluation recommendations Discharge planning per case management Subacute/SNF placement/home with home health when medically stable Follow-up with Ortho for recommendations Patient is clinically stable for discharge Awaiting subacute rehab placement per PT Will try to contact [facility] physicians this afternoon In process planning discharge to subacute rehab Plan of care reviewed with patient and his nurse 02/21/2022; I called [phone], at [facility] inside sales account representative called and said she would connect me with Dr. Bishop, however she informed me that the doctor is busy on the other line and she would call me back again tomorrow morning to discuss about the patient.We will try to contact [facility] physician tomorrow 02/22/2022;. We will try to contact [facility] physicians this afternoon to discuss the discharge planning 02/23/22; [facility] clinical case manager and our clinical case manager processing subacute rehab placement Pending authorization 02/24/2022; awaiting subacute placement disposition per [facility] 02/25/2022; pending authorization for subacute placement Medically stable for discharge History Interval history: I have seen and examined the patient at the bedside Patient's chart and medications reviewed No new events reported by the nursing Vital signs noted Hospitalist Physical - Constitutional Vitals: Temp Pulse Resp BP Pulse Ox 98.7 F 85 16 157/79 97 02/25/22 04:47 02/25/22 04:47 02/25/22 04:47 02/25/22 04:47 02/25/22 04:47 General appearance: Present: no acute distress, well-nourished, obese - EENT Eyes: Present: PERRL, EOM intact - Neck Neck: Present: supple, normal ROM - Respiratory Respiratory effort: normal Respiratory: bilateral: diminished, negative: rales, rhonchi, wheezing - Cardiovascular Rhythm: regular Heart Sounds: Present: S1 & S2 - Extremities Extremities: no ischemia, No edema - Abdominal General gastrointestinal: soft, non-tender, non-distended - Integumentary Integumentary: Present: clear, warm - Psychiatric Psychiatric: appropriate mood/affect, cooperative - Neurologic Neurologic: moves all extremities Results - Labs CBC & Chem 7: 02/21/22 05:01 02/22/22 05:17 Labs: Laboratory Last Values WBC 14.3 K/mm3 (4.5-11.0) H 02/20/22 05:32 RBC 3.76 M/mm3 (3.65-5.03) 02/20/22 05:32 Hgb 10.4 gm/dl (10.1-14.3) 02/21/22 05:01 Hct 32.5 % (30.3-42.9) 02/21/22 05:01 MCV 94 fl (79-97) 02/20/22 05:32 MCH 31 pg (28-32) 02/20/22 05:32 MCHC 33 % (30-34) 02/20/22 05:32 RDW 14.4 % (13.2-15.2) 02/20/22 05:32 Plt Count 195 K/mm3 (140-440) 02/20/22 05:32 Lymph % (Auto) 8.8 % (13.4-35.0) L 02/20/22 05:32 [place] % (Auto) 4.8 % (0.0-7.3) 02/20/22 05:32 Eos % (Auto) 2.7 % (0.0-4.3) 02/20/22 05:32 Baso % (Auto) 0.6 % (0.0-1.8) 02/20/22 05:32 Lymph # (Auto) 1.3 K/mm3 (1.2-5.4) 02/20/22 05:32 [place] # (Auto) 0.7 K/mm3 (0.0-0.8) 02/20/22 05:32 Eos # (Auto) 0.4 K/mm3 (0.0-0.4) 02/20/22 05:32 Baso # (Auto) 0.1 K/mm3 (0.0-0.1) 02/20/22 05:32 Seg Neutrophils % 83.1 % (40.0-70.0) H 02/20/22 05:32 Seg Neutrophils # 11.9 K/mm3 (1.8-7.7) H 02/20/22 05:32 Sodium 132 mmol/L (137-145) L 02/22/22 05:17 Potassium 4.3 mmol/L (3.6-5.0) 02/20/22 05:32 Chloride 98.4 mmol/L (98-107) 02/20/22 05:32 Carbon Dioxide 22 mmol/L (22-30) 02/20/22 05:32 Anion Gap 19 mmol/L 02/20/22 05:32 BUN 24 mg/dL (7-17) H 02/20/22 05:32 Creatinine 1.1 mg/dL (0.6-1.2) 02/20/22 05:32 Estimated GFR 58 ml/min 02/20/22 05:32 BUN/Creatinine Ratio 22 % 02/20/22 05:32 Glucose 96 mg/dL (65-100) 02/20/22 05:32 Calcium 9.5 mg/dL (8.4-10.2) 02/20/22 05:32 Total Bilirubin 0.90 mg/dL (0.1-1.2) 02/20/22 05:32 AST 27 units/L (5-40) 02/20/22 05:32 ALT 15 units/L (7-56) 02/20/22 05:32 Alkaline Phosphatase 85 units/L (35-129) 02/20/22 05:32 Total Protein 6.8 g/dL (6.3-8.2) 02/20/22 05:32 Albumin 3.6 g/dL (3.9-5) L 02/20/22 05:32 Albumin/Globulin Ratio 1.1 % 02/20/22 05:32 Chou/IV: Voiding Method External Female Catheter Active Medications - Current Medications Current Medications: Generic Name Dose Route Start Last Admin Trade Name Freq PRN Reason Stop Dose Admin Acetaminophen 650 mg 02/19/22 22:39 02/24/22 12:04 Acetaminophen 325 Mg Tab PO 650 mg Q4H PRN Administration Pain MILD(1-3)/Fever >100.5/BOWDEN Albuterol 2.5 mg 02/19/22 22:39 Albuterol 2.5 Mg/3 Ml Nebu IH Q3HRT PRN Shortness Of Breath Cetirizine HCl 10 mg 02/25/22 10:00 02/25/22 09:20 Cetirizine 10 Mg Tab PO 10 mg QDAY ZOHREH Administration Enoxaparin Sodium 40 mg 02/21/22 10:00 02/25/22 09:20 Enoxaparin 40 Mg/0.4 Ml Inj SUB-Q 40 mg QDAY ZOHREH Administration Famotidine 10 mg 02/21/22 10:00 02/25/22 09:20 Famotidine 10 Mg Tab PO 10 mg BID ZOHREH Administration Hydralazine HCl 10 mg 02/20/22 04:17 02/21/22 04:56 Hydralazine 20 Mg/1 Ml Inj IV 10 mg PRN PRN Administration Hypertension Ibuprofen 800 mg 02/20/22 15:20 Ibuprofen 800 Mg Tab PO Q8H PRN Pain, Moderate (4-6) Ketorolac Tromethamine 15 mg 02/20/22 15:20 02/24/22 22:06 Ketorolac 30 Mg/1 Ml Inj IV 02/25/22 15:19 15 mg Q6H PRN Administration Pain, Moderate (4-6) Morphine Sulfate 2 mg 02/20/22 15:20 Morphine 2 Mg/1 Ml Inj IV Q4H PRN Pain, Moderate (4-6) Morphine Sulfate 4 mg 02/20/22 15:20 02/22/22 19:39 Morphine 4 Mg/1 Ml Inj IV 4 mg Q4H PRN Administration Pain , Severe (7-10) Ondansetron HCl 4 mg 02/19/22 22:39 Ondansetron 4 Mg/2 Ml Inj IV Q8H PRN Nausea And Vomiting Sodium Chloride 10 ml 02/20/22 10:00 02/25/22 09:20 Sodium Chloride 0.9% 10 Ml Flush Syringe IV 10 ml BID ZOHREH Administration Sodium Chloride 10 ml 02/19/22 22:39 Sodium Chloride 0.9% 10 Ml Flush Syringe IV PRN PRN LINE FLUSH Sodium Chloride 10 ml 02/20/22 16:00 Sodium Chloride 0.9% 10 Ml Flush Syringe IV 03/02/22 23:59 PRN NR
[2022-02-25] MEDS: MORPHINE 2 MG/1 ML INJ IV PRN (21:15)
[2022-02-26] MEDS: MORPHINE 2 MG/1 ML INJ IV PRN (05:17)
[2022-02-26 06:07] LABS: Basophils % (Auto) 0.4 % (0.0-1.8); Eosinophils # (Auto) 0.3 K/mm3 (0.0-0.4); Eosinophils % (Auto) 2.7 % (0.0-4.3); Hematocrit 28.7 % (30.3-42.9); Hemoglobin 9.2 gm/dl (10.1-14.3); Lymphocytes # (Auto) 2.1 K/mm3 (1.2-5.4); Lymphocytes % (Auto) 22.1 % (13.4-35.0); Mean Corpuscular HGB Conc 32 % (30-34); Mean Corpuscular Volume 96 fl (79-97); Monocytes # (Auto) 0.6 K/mm3 (0.0-0.8); Monocytes % (Auto) 6.9 % (0.0-7.3); Platelet Count 234 K/mm3 (140-440); Red Blood Count 2.98 M/mm3 (3.65-5.03); Red Cell Distribution Width 13.7 % (13.2-15.2)
[2022-02-26] MEDS: CETIRIZINE 10 MG TAB PO SCH (09:35)
[2022-02-26] MEDS: ENOXAPARIN 40 MG/0.4 ML INJ SUB-Q SCH (09:35)
[2022-02-26] MEDS: FAMOTIDINE 10 MG TAB PO SCH ×2 (09:35→21:36)
[2022-02-26] MEDS: IBUPROFEN 800 MG TAB PO PRN ×2 (10:21→20:04)
--- NOTE | 2022-02-26 14:33 | Progress Note ---
Assessment and Plan Assessment and plan: On 02/22/2022 I called [facility] at [phone] and discussed with [facility] physician Dr. Zaragoza and discussed in detail Patient's condition, diagnosis, treatment of IM nailing and reduction of left hip fracture, and PT evaluation and recommendations of Subacute rehab placement, I also informed that patient is stable to be discharged to subacute rehab. She reported that [facility] case management will get in touch with her patient's bottle caser and make arrangements for transfer to subacute rehab. I informed the nurse and the CM about the [facility] physicians discharge plans. 81-year-old female with history of hypertension was brought to the emergency room because of left hip pain 1 day. Patient was getting up from her couch and had a mechanical trip and fell to the left hip area. Patient denies any other injuries or trauma. No loss of consciousness, no headache dizziness, chest pain, or palpitations. In the emergency room CT scan of the lower extremity shows acute fracture of the left proximal femur with mild impaction and moderate angulation. Subsequently evaluated by orthopedic surgeon Dr. Landis.and patient was admitted subsequently underwent closed reduction and IM nailing of left femur. Postop care per orthopedics surgeon --Femur fracture, left Admit the patient to the medical floor telemetry. NPO. D5 half-normal saline at the rate of 100 cc per hour. Morphine 2 mg IV every 4 hours as needed. Tylenol 650 mg p.o. every 6 hours as needed. Reconsult orthopedic Dr. Landis to see the patient for possible surgery --S/P Closed reduction and IM nail placement; Continue postop care per orthopedic surgeon recommendations Pain medications, physical therapy and Occupational Therapy and rehab --hypertension; uncontrolled probably due to pain Pain management, continue antihypertensives and as needed medications Hydralazine 10 mg IV every 6 hours as needed. We continue the home medication --History of fall Patient is on fall precaution. Physical therapy occupational therapy And rehabilitation --History of hyponatremia; improving gradually D5 half-normal saline at the rate of 100 cc/h. Monitor electrolytes --Leukocytosis Rocephin 2 g IV daily. Recheck CBC in the morning --Full CODE STATUS; -- DVT prophylaxis Heparin 5000 units subcu every 12 hours for DVT prophylaxis. Pepcid 20 mg IV every 12 hours for GI prophylaxis. Continue postop care Follow-up PT OT evaluation recommendations Discharge planning per case management Subacute/SNF placement/home with home health when medically stable Follow-up with Ortho for recommendations Patient is clinically stable for discharge Awaiting subacute rehab placement per PT Will try to contact [facility] physicians this afternoon In process planning discharge to subacute rehab Plan of care reviewed with patient and his nurse 02/21; I called [phone], at [facility] international representative called and said she would connect me with Dr. Bishop, however she informed me that the doctor is busy on the other line and she would call me back again tomorrow morning to discuss about the patient.We will try to contact [facility] physician tomorrow 02/22;. We will try to contact [facility] physicians this afternoon to discuss the discharge planning 02/23; [facility] bottle caser and our bottle caser processing subacute rehab p lacement Pending authorization 02/24; awaiting subacute placement disposition per [facility] 02/25; pending authorization for subacute placement Medically stable for discharge 02/26; pending authorization for subacute rehab placement Possible discharge in 1 to 2 days if placement is authorized and approved COVID-19 test prior to discharge History Interval history: I have seen and examined the patient at the bedside Patient's chart and medications reviewed No new events reported by the nursing staff Awaiting placement Patient has no new complaints Vital signs noted Hospitalist Physical - Constitutional Vitals: Temp Pulse Resp BP Pulse Ox 98.8 F 89 16 148/64 97 02/26/22 04:31 02/26/22 04:31 02/26/22 04:31 02/26/22 04:31 02/26/22 11:46 General appearance: Present: no acute distress, well-nourished, obese - EENT Eyes: Present: PERRL, EOM intact - Neck Neck: Present: supple, normal ROM - Respiratory Respiratory effort: normal Respiratory: bilateral: diminished, negative: rales, rhonchi, wheezing - Cardiovascular Rhythm: regular Heart Sounds: Present: S1 & S2 - Extremities Extremities: no ischemia, No edema - Abdominal General gastrointestinal: soft, non-tender, non-distended, normal bowel sounds - Integumentary Integumentary: Present: clear, warm - Psychiatric Psychiatric: appropriate mood/affect, cooperative - Neurologic Neurologic: CNII-XII intact, moves all extremities Results - Labs CBC & Chem 7: 02/26/22 05:05 02/26/22 05:05 Labs: Laboratory Last Values WBC 9.4 K/mm3 (4.5-11.0) 02/26/22 05:05 RBC 2.98 M/mm3 (3.65-5.03) L 02/26/22 05:05 Hgb 9.2 gm/dl (10.1-14.3) L 02/26/22 05:05 Hct 28.7 % (30.3-42.9) L 02/26/22 05:05 MCV 96 fl (79-97) 02/26/22 05:05 MCH 31 pg (28-32) 02/26/22 05:05 MCHC 32 % (30-34) 02/26/22 05:05 RDW 13.7 % (13.2-15.2) 02/26/22 05:05 Plt Count 234 K/mm3 (140-440) 02/26/22 05:05 Lymph % (Auto) 22.1 % (13.4-35.0) 02/26/22 05:05 [place] % (Auto) 6.9 % (0.0-7.3) 02/26/22 05:05 Eos % (Auto) 2.7 % (0.0-4.3) 02/26/22 05:05 Baso % (Auto) 0.4 % (0.0-1.8) 02/26/22 05:05 Lymph # (Auto) 2.1 K/mm3 (1.2-5.4) 02/26/22 05:05 [place] # (Auto) 0.6 K/mm3 (0.0-0.8) 02/26/22 05:05 Eos # (Auto) 0.3 K/mm3 (0.0-0.4) 02/26/22 05:05 Baso # (Auto) 0.0 K/mm3 (0.0-0.1) 02/26/22 05:05 Seg Neutrophils % 67.9 % (40.0-70.0) 02/26/22 05:05 Seg Neutrophils # 6.4 K/mm3 (1.8-7.7) 02/26/22 05:05 Sodium 134 mmol/L (137-145) L 02/26/22 05:05 Potassium 4.0 mmol/L (3.6-5.0) 02/26/22 05:05 Chloride 97.2 mmol/L (98-107) L 02/26/22 05:05 Carbon Dioxide 25 mmol/L (22-30) 02/26/22 05:05 Anion Gap 16 mmol/L 02/26/22 05:05 BUN 17 mg/dL (7-17) 02/26/22 05:05 Creatinine 1.1 mg/dL (0.6-1.2) 02/26/22 05:05 Estimated GFR 58 ml/min 02/26/22 05:05 BUN/Creatinine Ratio 15 % 02/26/22 05:05 Glucose 133 mg/dL (65-100) H 02/26/22 05:05 Calcium 9.0 mg/dL (8.4-10.2) 02/26/22 05:05 Magnesium 1.90 mg/dL (1.7-2.3) 02/26/22 05:05 Total Bilirubin 0.90 mg/dL (0.1-1.2) 02/20/22 05:32 AST 27 units/L (5-40) 02/20/22 05:32 ALT 15 units/L (7-56) 02/20/22 05:32 Alkaline Phosphatase 85 units/L (35-129) 02/20/22 05:32 Total Protein 6.8 g/dL (6.3-8.2) 02/20/22 05:32 Albumin 3.6 g/dL (3.9-5) L 02/20/22 05:32 Albumin/Globulin Ratio 1.1 % 02/20/22 05:32 Chou/IV: Voiding Method External Female Catheter Active Medications - Current Medications Current Medications: Generic Name Dose Route Start Last Admin Trade Name Freq PRN Reason Stop Dose Admin Acetaminophen 650 mg 02/19/22 22:39 02/24/22 12:04 Acetaminophen 325 Mg Tab PO 650 mg Q4H PRN Administration Pain MILD(1-3)/Fever >100.5/BOWDEN Albuterol 2.5 mg 02/19/22 22:39 Albuterol 2.5 Mg/3 Ml Nebu IH Q3HRT PRN Shortness Of Breath Cetirizine HCl 10 mg 02/25/22 10:00 02/26/22 09:35 Cetirizine 10 Mg Tab PO 10 mg QDAY ZOHREH Administration Enoxaparin Sodium 40 mg 02/21/22 10:00 02/26/22 09:35 Enoxaparin 40 Mg/0.4 Ml Inj SUB-Q 40 mg QDAY ZOHREH Administration Famotidine 10 mg 02/21/22 10:00 02/26/22 09:35 Famotidine 10 Mg Tab PO 10 mg BID ZOHREH Administration Hydralazine HCl 10 mg 02/20/22 04:17 02/21/22 04:56 Hydralazine 20 Mg/1 Ml Inj IV 10 mg PRN PRN Administration Hypertension Ibuprofen 800 mg 02/20/22 15:20 02/26/22 10:21 Ibuprofen 800 Mg Tab PO 800 mg Q8H PRN Administration Pain, Moderate (4-6) Morphine Sulfate 2 mg 02/20/22 15:20 02/26/22 05:17 Morphine 2 Mg/1 Ml Inj IV 2 mg Q4H PRN Administration Pain, Moderate (4-6) Morphine Sulfate 4 mg 02/20/22 15:20 02/22/22 19:39 Morphine 4 Mg/1 Ml Inj IV 4 mg Q4H PRN Administration Pain , Severe (7-10) Ondansetron HCl 4 mg 02/19/22 22:39 Ondansetron 4 Mg/2 Ml Inj IV Q8H PRN Nausea And Vomiting Sodium Chloride 10 ml 02/20/22 10:00 02/26/22 09:39 Sodium Chloride 0.9% 10 Ml Flush Syringe IV 10 ml BID ZOHREH Administration Sodium Chloride 10 ml 02/19/22 22:39 Sodium Chloride 0.9% 10 Ml Flush Syringe IV PRN PRN LINE FLUSH Sodium Chloride 10 ml 02/20/22 16:00 Sodium Chloride 0.9% 10 Ml Flush Syringe IV 03/02/22 23:59 PRN NR Nutrition/Malnutrition Assess - Dietary Evaluation Nutrition/Malnutrition Findings: Nutrition Notes Start: 02/25/22 12:16 Freq: Status: Active Protocol: Document 02/25/22 12:16 RS (Rec: 02/25/22 12:26 RS [id number]) Nutrition Notes Need for Assessment generated from: oil producer Initial or Follow up Assessment Current Diagnosis Hypertension Other Pertinent Diagnosis Fx femur Current Diet Cardiac Diet Labs/Tests No recent labs Pertinent Medications reviewed Height 5 ft 3 in Weight 81.647 kg [place] Body Weight (kg) 52.27 BMI 31.8 Intake Prior to Admission Good Weight change and time frame MERY wt hx, poor historian Weight Status Overweight Subjective/Other Information relocation coordinator for skin risk assessment. [place] score 18. Per diet recall pt consuming ~ 25% of meal tray. Pt reports disliking hospital food, has poor appeitte, and denies wanting ONS. RD provided education on importance of consuming HBV protein in relation to medical condition. Pt verbalized understanding. Pt tolerating PT. Percent of energy/protein needs met: 34%/26% Burn Absent Trauma Absent GI Symptoms None Current % PO Negligible Minimum of two criteria No #1 Nutrition Diagnosis Increased nutrient needs ( specify in comment below) Comments: protein Etiology fx femur As Evidenced by Signs and Symptoms pt only eating ~25% of meal tray, pt recieving only 34% of kcal needs and 26% of Pro needs via PO intake,reports poor appetite, and denies wanting ONS Is patient on ventilator? No Is Patient Ambulatory and/or Out of Bed Yes REE-([facility]-ambulatory/OOB) [ [id number] [id number]] Calculation Used for Recommendations [facility] Additional Notes Protein: 82-98g/day (1-1.2g/KG BW/day) Fluid needs: 1mL/kcal or per MD Nutrition Intervention Goal #1 Pt will meet at least 75% of kcal/protein needs via PO intake Anticipated Discharge Needs: Cardiac Diet Follow-Up By: 02/27/22 Additional Comments F/U for appetite changes and PO intakes
--- NOTE | 2022-02-26 18:37 | Discharge Summary ---
Providers - Providers Date of Admission: 02/19/22 22:39 Date of discharge: 02/26/22 Attending physician: RICA MONGE 02/19/22 14:47 Consult to Physician [CONS] Stat Comment: Consulting Provider: GREGORY LANDIS Physician Instructions: Reason For Exam: hip fx 02/20/22 15:20 Consult to Case Management [CONS] Routine Services Needed at Discharge: Other Notified:: yes Additional Physician Instructions: Assess Discharge needs. Physical Therapy Evaluation and Treat [CONS] Routine Comment: Reason For Exam: Eval and Treat 02/22/22 10:21 Occupational Therapy Evaluate and Treat [CONS] Routine Comment: Reason For Exam: post op left hip surgery Primary care physician: GENERAL STUDIES PROGRAM CHAIR Hospitalization Reason for admission: History of fall, left femur neck fracture Condition: Stable Pertinent studies: CT left lower extremity acute basicervical fracture of the left proximal femur with mild impaction and moderate angulation CT lumbar spine moderate level curvature of the lumbar spine with moderate to severe multilevel degenerative changes, L3-4 and L4-5 appear to be the most affected levels, no acute injury left femur x-ray; proximal left femur fracture involving basicervical neck extending into intertrochanteric and greater trochanteric regions Procedures: Left femur fracture S/p closed reduction and IM nail placement Hospital course: 81-year-old female with history of hypertension was brought to the emergency room because of left hip pain 1 day. Patient was getting up from her couch and had a mechanical trip and fell to the left hip area. Patient denies any other injuries or trauma. No loss of consciousness, no headache dizziness, chest pain, or palpitations. In the emergency room CT scan of the lower extremity shows acute fracture of the left proximal femur with mild impaction and moderate angulation. Subsequently evaluated by orthopedic surgeon Dr. Landis.and patient was admitted subsequently underwent closed reduction and IM nailing of left femur. Patient, had uncomplicated postoperative period. PT OT evaluated the patient and recommended subacute rehab placement. [place] physician team was following this patient and discharge planning, today patient is being transferred to subacute rehab for rehabilitation.Patient is comfortable no new complaints, Patient is hemodynamically and clinically stable at discharge. Discharge diagnosis: --History of fall Patient is on fall precaution. Physical therapy occupational therapy And rehabilitation --Femur fracture, left Admit the patient to the medical floor telemetry. NPO. D5 half-normal saline at the rate of 100 cc per hour. Morphine 2 mg IV every 4 hours as needed. Tylenol 650 mg p.o. every 6 hours as needed. Reconsult orthopedic Dr. Landis to see the patient for possible surgery --S/P Closed reduction and IM nail placement; Continue postop care per orthopedic surgeon recommendations Pain medications, physical therapy and Occupational Therapy and rehab --hypertension; uncontrolled probably due to pain Pain management, continue antihypertensives and as needed medications Hydralazine 10 mg IV every 6 hours as needed. We continue the home medication --History of hyponatremia; improving gradually D5 half-normal saline at the rate of 100 cc/h. Monitor electrolytes --Leukocytosis Rocephin 2 g IV daily. Recheck CBC in the morning --Full CODE STATUS; -- DVT prophylaxis Eliquis 2.5 mg twice a day for 35 days Patient was waiting for authorization from insurance which was approved yesterday evening Patient is being discharged to subacute rehab facility today Stable at discharge. Disposition: [facility] Final Discharge Diagnosis (Prints w/discharge instructions): History of fall. Left femur fracture. s/p Closed reduction and IM nail placement. Hypertension moderate control. History of hyponatremia/improved. Leukocytosis/resolved. Obesity BMI 31.9 Time spent for discharge: 35 minutes Core Measure Documentation - Palliative Care Palliative Care/ Comfort Measures: Not Applicable - Core Measures Any of the following diagnoses?: none Exam - Constitutional Vitals: Temp Pulse Resp BP Pulse Ox 98.8 F 89 16 148/64 97 02/26/22 04:02/26/22 04:02/26/22 04:02/26/22 04:02/26/22 11:46 General appearance: Present: no acute distress, well-nourished - EENT Eyes: Present: PERRL, EOM intact - Neck Neck: Present: supple, normal ROM - Respiratory Respiratory effort: normal Respiratory: bilateral: diminished, negative: rales, rhonchi, wheezing - Cardiovascular Rhythm: regular Heart Sounds: Present: S1 & S2 - Extremities Extremities: no ischemia, No edema - Abdominal General gastrointestinal: Present: soft, non-tender, non-distended, normal bowel sounds - Integumentary Integumentary: Present: clear, warm - Musculoskeletal Musculoskeletal: strength equal bilaterally - Psychiatric Psychiatric: appropriate mood/affect, cooperative - Neurologic Neurologic: CNII-XII intact, moves all extremities Plan Activity: advance as tolerated, fall precautions Diet: other (Cardiac diet) Special Instructions: physical therapy, occupational therapy Additional Instructions: Follow-up with primary care physician in 1 to 2 weeks. Follow orthopedic surgeon in 2 weeks. fall precautions. If you notice any bleeding because of blood thinners stop the medications contact MD or go to the nearest emergency room as needed. If you have worsening symptoms contact MD or go to the nearest emergency room as needed. Follow up with: PRIMARY CARE, [Primary Care Provider] - 3-5 Days Prescriptions: Apixaban [Eliquis] 2.5 mg PO BID 35 Days #70 Ibuprofen [Motrin 800 MG tab] 800 mg PO Q8H PRN #30 tablet PRN Reason: Pain, Moderate (4-6) Famotidine [Pepcid] 10 mg PO BID #30 tablet
[2022-02-26] MEDS: hydrALAZINE 20 MG/1 ML INJ IV PRN (22:19)
[2022-02-27] MEDS: IBUPROFEN 800 MG TAB PO PRN ×2 (03:26→12:39)
[2022-02-27] MEDS: FAMOTIDINE 10 MG TAB PO SCH (09:24)
[2022-02-27] MEDS: ENOXAPARIN 40 MG/0.4 ML INJ SUB-Q SCH (09:24)
[2022-02-27] MEDS: CETIRIZINE 10 MG TAB PO SCH (09:24)
[2022-02-27 12:45] VITALS: BP 149/77
== END 2022-02-27 15:45 | DRG 481 ==
LOC: ED 09:06 → 3A 22:39
PROVIDERS: ADMIT Hospitalist; ATTEND Internal Medicine
PROC: 0QS736Z Reposition Left Upper Femur with Intramedullary Internal Fixation Device, Percutaneous Approach (ICD-10-PCS; principal; 2022-02-20)
DX: S72.142A Displaced intertrochanteric fracture of left femur, initial encounter for closed fracture (principal); E87.1 Hypo-osmolality and hyponatremia; Z20.822 Contact with and (suspected) exposure to COVID-19; I10 Essential (primary) hypertension; W18.39XA Other fall on same level, initial encounter; Y93.89 Activity, other specified; Y92.89 Other specified places as the place of occurrence of the external cause; Y99.8 Other external cause status; D72.829 Elevated white blood cell count, unspecified; E78.5 Hyperlipidemia, unspecified; E66.9 Obesity, unspecified; Z68.31 Body mass index [BMI] 31.0-31.9, adult; Z95.1 Presence of aortocoronary bypass graft; Z82.49 Family history of ischemic heart disease and other diseases of the circulatory system; Z88.6 Allergy status to analgesic agent
CPT/HCPCS: 36415; 72131; 80048; 80053; 83735; 84295; 85014; 85018; 85025; 94640; 94760; G0378; J1815; J3490; J7070; C1713; C1769; J0171; J0360; J0690; J0696; J1170; J1650; J1885; J2250; J2270; J2405; J2704; J2710; J3010; J7030; J7120; U0003